=== PATIENT | male | born 1955 | race Caucasian/White ===

== ENCOUNTER → 2020-05-04 09:22 | Outpatient (CLI) | payer MEDICARE, OTHER, SELFPAY ==
[2020-05-04 09:47] LABS: Absolute Lymphocyte Count 2.02 X10^3/uL (0.83-4.51); Absolute Neutrophil Count 4.3 X10^3/uL (2.0-7.7); Basophil# 0.06 X10^3/uL; Basophil% 0.8 % (0-1); Eosinophils% 4.1 % (0-5); Hemoglobin 15.1 g/dL (13.0-16.5); Lymphocyte # 2.02 X10^3/ul (4.0); Lymphocyte % 27.7 % (19-41); Mean Corp Hgb Conc 33.6 g/dL (32-36); Mean Corpuscular Hgb 30.6 pg (27.0-32.0); Mean Corpuscular Volume 91.1 fL (80-94); Mean Platelet Vol. 10.1 fl (6.2-12.0); Monocyte# 0.58 X10^3/uL; NRBC Flagged by Analyzer 0 % (0-5); Neutrophil # 4.31 X10^3/uL (2.7-7.7); Neutrophil % 59.1 % (47-70); Platelet Count 245 K/mm3 (150-450); RBC Distribution Width CV 12.7 % (11.6-14.6); RBC Distribution Width SD 42.1 fl (35.1-43.9); Red Blood Count 4.94 M/mm3 (4.6-6.2); White Blood Count 7.3 K/mm3 (4.4-11.0)
[2020-05-04 10:02] LABS: ALB/GLOB Ratio 0.9 RATIO (0.9-2.4); AST(SGOT) 12 U/L (15-37); Alanine Aminotransfer ALT/SGPT 25 U/L (16-61); Albumin, Serum 3.7 g/dL (3.2-5.0); Alkaline Phosphatase 89 U/L (45-117); Anion Gap 2 (5-15); BUN 21 mg/dL (7-18); BUN/Creat Ratio 18.8 RATIO (10-20); Calcium,Total 9.3 mg/dL (8.5-10.1); Chloride 102 mmol/L (98-107); Cholesterol 196 mg/dL (200); Creatinine, Serum 1.12 mg/dL (0.70-1.30); EST Glomerular Filtration Rate 70 mL/min (>60); Est Glom Filt Rate - Afr Amer 84 mL/min (>60); Globulin 4.3 g/dL (2.2-4.2); Glucose 190 mg/dL (74-106); High Density Lipoprotein 44 mg/dL; Potassium 3.9 mmol/L (3.5-5.1); Sodium Level 136 mmol/L (136-145); Triglycerides 164 mg/dL; Very Low Density Lipoprotein 33 mg/dL (5-40)
[2020-05-04 10:04] LABS: Vitamin D,25 Hydroxy 23.4 ng/mL
[2020-05-04 10:05] LABS: Hemoglobin A1c 10.4 % (3.8-5.6)
== END ==
PROVIDERS: Referring Provider Nurse Practitioner Family; Visit Provider Nurse Practitioner Family
DX: E11.65 Type 2 diabetes mellitus with hyperglycemia (principal); I10 Essential (primary) hypertension; E55.9 Vitamin D deficiency, unspecified
CPT/HCPCS: 36415; 80053; 80061; 82306; 83036; 85025

== ENCOUNTER → 2020-07-04 09:04 | Outpatient (CLI) | payer MEDICARE, OTHER, SELFPAY ==
[2020-07-04 09:29] LABS: Absolute Lymphocyte Count 1.67 X10^3/uL (0.83-4.51); Absolute Neutrophil Count 4.5 X10^3/uL (2.0-7.7); Basophil# 0.06 X10^3/uL; Basophil% 0.8 % (0-1); Eosinophil# 0.32 X10^3/uL; Eosinophils% 4.5 % (0-5); Hematocrit 44.8 % (40-54); Lymphocyte # 1.67 X10^3/ul (4.0); Lymphocyte % 23.6 % (19-41); Mean Corp Hgb Conc 33.5 g/dL (32-36); Mean Corpuscular Hgb 30.7 pg (27.0-32.0); Mean Corpuscular Volume 91.8 fL (80-94); Mean Platelet Vol. 10.1 fl (6.2-12.0); Monocyte# 0.54 X10^3/uL; Monocyte% 7.6 % (0-10); NRBC Flagged by Analyzer 0 % (0-5); Neutrophil # 4.48 X10^3/uL (2.7-7.7); Neutrophil % 63.2 % (47-70); Platelet Count 245 K/mm3 (150-450); RBC Distribution Width CV 12.7 % (11.6-14.6); RBC Distribution Width SD 42.4 fl (35.1-43.9); Red Blood Count 4.88 M/mm3 (4.6-6.2); White Blood Count 7.1 K/mm3 (4.4-11.0)
[2020-07-04 09:45] LABS: Hemoglobin A1c 9.9 % (3.8-5.6)
[2020-07-04 09:51] LABS: ALB/GLOB Ratio 0.9 RATIO (0.9-2.4); AST(SGOT) 9 U/L (15-37); Alanine Aminotransfer ALT/SGPT 25 U/L (16-61); Albumin, Serum 3.9 g/dL (3.2-5.0); Alkaline Phosphatase 93 U/L (45-117); Anion Gap 4 (5-15); BUN 20 mg/dL (7-18); BUN/Creat Ratio 16.8 RATIO (10-20); Calcium,Total 9.4 mg/dL (8.5-10.1); Chloride 101 mmol/L (98-107); Cholesterol 221 mg/dL (200); Creatinine, Serum 1.19 mg/dL (0.70-1.30); EST Glomerular Filtration Rate 65 mL/min (>60); Est Glom Filt Rate - Afr Amer 78 mL/min (>60); Globulin 4.3 g/dL (2.2-4.2); Glucose 231 mg/dL (74-106); High Density Lipoprotein 45 mg/dL; Potassium 3.7 mmol/L (3.5-5.1); Protein, Total 8.2 g/dL (6.4-8.2); Sodium Level 137 mmol/L (136-145); Triglycerides 162 mg/dL; Very Low Density Lipoprotein 32 mg/dL (5-40)
[2020-07-06 14:42] LABS: Vitamin D,25 Hydroxy 58.4 ng/mL
== END ==
PROVIDERS: Referring Provider Family Medicine; Visit Provider Family Medicine
DX: E11.65 Type 2 diabetes mellitus with hyperglycemia (principal); E78.5 Hyperlipidemia, unspecified; I10 Essential (primary) hypertension; E55.9 Vitamin D deficiency, unspecified
CPT/HCPCS: 36415; 80053; 80061; 82306; 83036; 85025

== ENCOUNTER → 2021-02-15 07:36 | Outpatient (CLI) | payer MEDICARE, OTHER, SELFPAY ==
[2021-02-15 08:11] LABS: Absolute Neutrophil Count 5.9 X10^3/uL (2.0-7.7); Basophil# 0.04 X10^3/uL; Basophil% 0.5 % (0-1); Eosinophil# 0.11 X10^3/uL; Eosinophils% 1.3 % (0-5); Hematocrit 42.6 % (40-54); Hemoglobin 14.2 g/dL (13.0-16.5); Lymphocyte % 19.2 % (19-41); Mean Corp Hgb Conc 33.3 g/dL (32-36); Mean Corpuscular Hgb 30.5 pg (27.0-32.0); Mean Corpuscular Volume 91.6 fL (80-94); Mean Platelet Vol. 10.1 fl (6.2-12.0); Monocyte# 0.62 X10^3/uL; Monocyte% 7.4 % (0-10); NRBC Flagged by Analyzer 0 % (0-5); Neutrophil # 5.94 X10^3/uL (2.7-7.7); Neutrophil % 71.4 % (47-70); Platelet Count 246 K/mm3 (150-450); RBC Distribution Width CV 12.9 % (11.6-14.6); RBC Distribution Width SD 42.9 fl (35.1-43.9); Red Blood Count 4.65 M/mm3 (4.6-6.2); White Blood Count 8.3 K/mm3 (4.4-11.0)
[2021-02-15 08:30] LABS: ALB/GLOB Ratio 0.9 RATIO (0.9-2.4); AST(SGOT) 16 U/L (15-37); Alanine Aminotransfer ALT/SGPT 25 U/L (16-61); Albumin, Serum 3.6 g/dL (3.2-5.0); Alkaline Phosphatase 78 U/L (45-117); Anion Gap 5 (5-15); BUN 21 mg/dL (7-18); BUN/Creat Ratio 19.4 RATIO (10-20); Calcium,Total 9.1 mg/dL (8.5-10.1); Chloride 102 mmol/L (98-107); Cholesterol 180 mg/dL (200); Creatinine, Serum 1.08 mg/dL (0.70-1.30); EST Glomerular Filtration Rate 72 mL/min (>60); Est Glom Filt Rate - Afr Amer 88 mL/min (>60); Glucose 123 mg/dL (74-106); High Density Lipoprotein 44 mg/dL; PSA,Total - Annual Screen 4.44 ng/mL (0.00-4.00); Potassium 3.6 mmol/L (3.5-5.1); Protein, Total 7.6 g/dL (6.4-8.2); Sodium Level 136 mmol/L (136-145); Triglycerides 139 mg/dL; Very Low Density Lipoprotein 28 mg/dL (5-40)
[2021-02-15 11:33] LABS: Hemoglobin A1c 10.4 % (3.8-5.6)
[2021-02-18 18:17] LABS: Vitamin D 1,25-Dihydroxy 52.8 pg/mL (19.9-79.3)
== END ==
PROVIDERS: Referring Provider Nurse Practitioner Adult Health; Visit Provider Nurse Practitioner Adult Health
DX: E11.65 Type 2 diabetes mellitus with hyperglycemia (principal); E55.9 Vitamin D deficiency, unspecified; Z12.5 Encounter for screening for malignant neoplasm of prostate
CPT/HCPCS: 36415; 80053; 80061; 82652; 83036; 84153; 85025; G0103

== ENCOUNTER → 2021-06-04 09:18 | Outpatient (CLI) | payer MEDICARE, OTHER, SELFPAY ==
[2021-06-04 09:56] LABS: Glucose 119 mg/dL (74-106); PSA,Total- Diagnostic 3.21 ng/mL (0.0-4.0)
== END ==
PROVIDERS: Referring Provider Family Medicine; Visit Provider Family Medicine
DX: E11.42 Type 2 diabetes mellitus with diabetic polyneuropathy (principal); N40.0 Benign prostatic hyperplasia without lower urinary tract symptoms
CPT/HCPCS: 36415; 82947; 84153

== ENCOUNTER → 2021-12-30 | Outpatient (CLI) | payer MEDICARE, OTHER, SELFPAY ==
[2021-12-30 09:09] LABS: Absolute Lymphocyte Count 1.32 X10^3/uL (0.83-4.51); Absolute Neutrophil Count 4.3 X10^3/uL (2.0-7.7); Basophil# 0.03 X10^3/uL; Basophil% 0.5 % (0-1); Eosinophil# 0.26 X10^3/uL; Hematocrit 41.6 % (40-54); Hemoglobin 14.1 g/dL (13.0-16.5); Lymphocyte # 1.32 X10^3/ul (0.83-4.51); Lymphocyte % 20.5 % (19-41); Mean Corp Hgb Conc 33.9 g/dL (32-36); Mean Corpuscular Hgb 31.6 pg (27.0-32.0); Mean Corpuscular Volume 93.3 fL (80-94); Mean Platelet Vol. 10.2 fl (6.2-12.0); Monocyte# 0.54 X10^3/uL; Monocyte% 8.4 % (0-10); NRBC Flagged by Analyzer 0 % (0-5); Neutrophil # 4.28 X10^3/uL (2.7-7.7); Neutrophil % 66.3 % (47-70); Platelet Count 223 K/mm3 (150-450); RBC Distribution Width CV 12.9 % (11.6-14.6); Red Blood Count 4.46 M/mm3 (4.6-6.2); White Blood Count 6.5 K/mm3 (4.4-11.0)
[2021-12-30 09:28] LABS: Hemoglobin A1c 7.3 % (3.8-5.6); Microalbumin,Random Urine 8.3 mg/L (NO RANGE EST.); Microalbumin:Creatinine Ratio 9.2 mg/g CRE (<30 mg/g CRE)
[2021-12-30 09:47] LABS: ALB/GLOB Ratio 0.9 RATIO (0.9-2.4); AST(SGOT) 14 U/L (15-37); Alanine Aminotransfer ALT/SGPT 27 U/L (16-61); Albumin, Serum 3.6 g/dL (3.2-5.0); Alkaline Phosphatase 68 U/L (45-117); Anion Gap 4 (5-15); BUN 25 mg/dL (7-18); BUN/Creat Ratio 26.4 RATIO (10-20); Chloride 103 mmol/L (98-107); Cholesterol 191 mg/dL (200); Creatinine, Serum 0.95 mg/dL (0.70-1.30); EST Glomerular Filtration Rate 84 mL/min (>60); Est Glom Filt Rate - Afr Amer 102 mL/min (>60); Globulin 3.8 g/dL (2.2-4.2); Glucose 97 mg/dL (74-106); High Density Lipoprotein 43 mg/dL; Potassium 3.8 mmol/L (3.5-5.1); Protein, Total 7.4 g/dL (6.4-8.2); Sodium Level 139 mmol/L (136-145); Triglycerides 102 mg/dL; Very Low Density Lipoprotein 20 mg/dL (5-40); Vitamin D,25 Hydroxy 35.6 ng/mL
== END | disposition home or self-care (01) ==
LOC: PAVLAB 08:37
PROVIDERS: Referring Provider Nurse Practitioner Adult Health; Visit Provider Nurse Practitioner Adult Health
DX: E11.65 Type 2 diabetes mellitus with hyperglycemia (principal); E55.9 Vitamin D deficiency, unspecified
CPT/HCPCS: 36415; 80053; 80061; 82043; 82306; 82570; 83036; 85025

== ENCOUNTER → 2022-04-16 | Outpatient (CLI) | payer MEDICARE, OTHER, SELFPAY ==
--- NOTE | 2022-04-16 13:11 | NEURO ---
NCS and/or EMG Patient Report Ordering Doctor: Eliu Vang DATE OF SERVICE: 04/16/22 Jonas presents for electrodiagnostic testing of the upper limbs. He reports numbness and tingling in both hands with weakness. Electrodiagnostic findings: Left median motor nerve demonstrates prolonged latency with reduced amplitude and normal conduction velocity. Right median motor nerve demonstrates prolonged latency with reduced amplitude and reduced conduction velocity. Normal left ulnar motor response noted bilaterally. Borderline prolonged median F wave bilaterally. Absent median sensory responses bilaterally. Normal ulnar and radial sensory responses. On needle EMG, all muscles tested in the upper limbs showed no evidence of denervation with normal motor unit action potentials. Electrodiagnostic impression: This is an abnormal study in the upper limbs 1. Electrodiagnostic findings consistent with bilateral median mononeuropathy. This consistent with a severe bilateral carpal tunnel syndrome.
== END | disposition home or self-care (01) ==
LOC: PSN 10:09
DX: G62.9 Polyneuropathy, unspecified (principal); R20.0 Anesthesia of skin
CPT/HCPCS: 95886; 95912

== ENCOUNTER → 2022-05-29 | Outpatient (CLI) | payer MEDICARE, OTHER, SELFPAY ==
[2022-05-29 09:16] LABS: AST(SGOT) 11 U/L (15-37); Alanine Aminotransfer ALT/SGPT 26 U/L (16-61); Albumin, Serum 3.8 g/dL (3.2-5.0); Alkaline Phosphatase 69 U/L (45-117); Anion Gap 8 (5-15); BUN 21 mg/dL (7-18); BUN/Creat Ratio 19.3 RATIO (10-20); Calcium,Total 9.2 mg/dL (8.5-10.1); Chloride 103 mmol/L (98-107); Cholesterol 185 mg/dL (200); Creatinine, Serum 1.09 mg/dL (0.70-1.30); EST Glomerular Filtration Rate 71 mL/min (>60); Est Glom Filt Rate - Afr Amer 86 mL/min (>60); Globulin 3.9 g/dL (2.2-4.2); Glucose 120 mg/dL (74-106); High Density Lipoprotein 47 mg/dL; Potassium 3.5 mmol/L (3.5-5.1); Protein, Total 7.7 g/dL (6.4-8.2); Sodium Level 139 mmol/L (136-145); Triglycerides 119 mg/dL; Very Low Density Lipoprotein 24 mg/dL (5-40)
[2022-05-29 09:23] LABS: Hemoglobin A1c 8.2 % (3.8-5.6)
== END | disposition home or self-care (01) ==
LOC: PAVLAB 08:48
PROVIDERS: Referring Provider Family Medicine; Visit Provider Family Medicine
DX: E11.9 Type 2 diabetes mellitus without complications (principal); I10 Essential (primary) hypertension
CPT/HCPCS: 36415; 80053; 80061; 83036

== ENCOUNTER → 2022-07-14 | Outpatient (CLI) | payer MEDICARE, OTHER, SELFPAY ==
[2022-07-07 11:52] LABS: Hematocrit 46.3 % (40-54); Hemoglobin 15.4 g/dL (13.0-16.5); Mean Corp Hgb Conc 33.3 g/dL (32-36); Mean Corpuscular Hgb 31.1 pg (27.0-32.0); Mean Corpuscular Volume 93.5 fL (80-94); Mean Platelet Vol. 10.1 fl (6.2-12.0); Platelet Count 273 K/mm3 (150-450); RBC Distribution Width SD 44.5 fl (35.1-43.9); Red Blood Count 4.95 M/mm3 (4.6-6.2); White Blood Count 8.6 K/mm3 (4.4-11.0)
[2022-07-07 12:13] LABS: Anion Gap 5 (5-15); BUN 18 mg/dL (7-18); BUN/Creat Ratio 16.4 RATIO (10-20); Calcium,Total 9.9 mg/dL (8.5-10.1); Chloride 103 mmol/L (98-107); EST Glomerular Filtration Rate 71 mL/min (>60); Est Glom Filt Rate - Afr Amer 85 mL/min (>60); Glucose 78 mg/dL (74-106); Potassium 3.4 mmol/L (3.5-5.1); Sodium Level 140 mmol/L (136-145)
[2022-07-07 13:45] LABS: Hemoglobin A1c 7.8 % (3.8-5.6)
--- NOTE | 2022-07-14 08:39 | EKG12_ITS ---
Test Reason : PREOP Blood Pressure : / mmHG Vent. Rate : 076 BPM Atrial Rate : 076 BPM P-R Int : 198 ms QRS Dur : 122 ms QT Int : 394 ms P-R-T Axes : 034 -45 000 degrees QTc Int : 443 ms Normal sinus rhythm Left axis deviation Left bundle branch block Abnormal ECG Confirmed by SHANDRA EGAN, CARLENE ([id number]), tape editor MAIKOL GREENE ([id number]) on 07/15/2022 12:38:54 PM Referred By: Jase Boo Confirmed By:CARLENE DEVI MD
--- NOTE | 2022-07-14 08:50 | RAD_ITS ---
HISTORY: PRE-OP. TECHNIQUE: XR Chest 2 Views. COMPARISON: None. FINDINGS: CARDIOMEDIASTINAL BORDERS: Cardiac silhouette within normal limits in size. Mediastinal contour unremarkable with calcification of the aortic knob. LUNGS: 10 mm nodular opacity in the left midlung. Minimal linear atelectasis or scarring in the left lung base. PLEURA: No pleural effusion or pneumothorax seen. OSSEOUS STRUCTURES: Spinal osteophytes present. RAD/Chest PA and Lateral IMPRESSION: 10 mm nodular opacity in the left midlung. Recommend correlation with prior imaging or follow-up CT to assess for pulmonary nodule. Electronically Signed: Nay Nath MD at 9:40 EST ,
== END | disposition home or self-care (01) ==
LOC: PSN 08:38
PROVIDERS: Referring Provider Student in an Organized Health Care Education/Training Program; Visit Provider Student in an Organized Health Care Education/Training Program
DX: Z01.818 Encounter for other preprocedural examination (principal); E11.9 Type 2 diabetes mellitus without complications
CPT/HCPCS: 36415; 71046; 80048; 83036; 85027; 93005

== ENCOUNTER 2023-03-02 18:18 | Observation (INO) | payer MEDICARE, OTHER, SELFPAY ==
[2023-03-02] VITALS (7 sets, daily range): BP systolic 130–168; BP diastolic 74–94; PULSE 72–115; RESP 14–18; TEMP 35.7–36.7; O2SAT 94–98; BMI 27.6; BMI 27.1
--- NOTE | 2023-03-02 18:37 | EKG12_ITS ---
Test Reason : DYSRHYTHMIA Blood Pressure : / mmHG Vent. Rate : 104 BPM Atrial Rate : 104 BPM P-R Int : 200 ms QRS Dur : 136 ms QT Int : 374 ms P-R-T Axes : 041 -42 043 degrees QTc Int : 491 ms Sinus tachycardia Left axis deviation Left ventricular hypertrophy with QRS widening Abnormal ECG Confirmed by SHANDRA EGAN, CARLENE ([id number]), online editor MAIKOL GREENE ([id number]) on 03/04/2023 9:27:00 AM Referred By: Confirmed By:CARLENE DEVI MD
--- NOTE | 2023-03-02 18:37 | CT_ITS ---
We are attempting to reach an attending provider to discuss findings. An addendum with communication details will be sent when the communication is complete. INDICATION: Neuro deficit, acute, stroke suspected EXAMINATION: CT BRAIN WITH CONTRAST TECHNIQUE: Noncontrast axial images were obtained of the brain. Subsequently, routine carotid CT angiogram protocol was performed without and with IV contrast. In addition, images were obtained of the [place] of [place]. NASCET criteria using the distal ICAs for comparison were used for evaluation of stenoses. 3D reconstructions were reviewed. A radiation dose optimization technique was used for this scan. IV Contrast dosage and agent: 100 mL [id number] COMPARISON: None FINDINGS: --CT BRAIN: BRAIN PARENCHYMA: No intra- or extra-axial hemorrhage. No evidence of acute infarct. No intracranial mass or mass effect. There is preservation of the fuchs/white matter interface. Posterior fossa structures are unremarkable. CSF SPACES: Appropriate for age. No hydrocephalus. Basal cisterns are patent. CALVARIUM, SKULL BASE, PARANASAL SINUSES AND MASTOID AIR CELLS: Clear. No discrete lytic or blastic abnormalities. ASPECTS Score for Acute Strokes: 10 --CTA NECK: AORTIC ARCH AND BRANCHES: Normal anatomy, patent. RIGHT CCA: No occlusion, significant stenosis or dissection. RIGHT ICA: No occlusion, significant stenosis or dissection. LEFT CCA: No occlusion, significant stenosis or dissection. LEFT ICA: No occlusion, significant stenosis or dissection. RIGHT VERTEBRAL ARTERY: No occlusion, significant stenosis or dissection. LEFT VERTEBRAL ARTERY: No occlusion, significant stenosis or dissection. NECK SOFT TISSUES: Unremarkable. --CTA HEAD: --Anterior circulation: ICAs: No significant stenosis at the intracranial/visualized segments. ACAs: No significant stenosis at the visualized segments. ACOM: Present. MCAs: No significant stenosis at the visualized segments. --Posterior circulation: PCOMs: Present. hand polisher: No significant stenosis at the visualized segments. BASILAR ARTERY: No significant stenosis. VERTEBRAL ARTERIES: No significant stenosis at the intradural/visualized segments. No evidence of intracranial aneurysm or vascular malformation. CT/STROKE CTA Head AND Neck W/Con IMPRESSION: Negative CT Brain, CTA Carotid, and CTA Brain. Electronically Signed: Mian Martinez MD at 20:07 EDT ,
--- NOTE | 2023-03-02 18:38 | EDS_ITS ---
HPI History of Present Illness Chief Complaint: Neuro S/Sx Detail of Chief Complaint: Left arm weakness Informant: patient Narrative Narrative: Patient presents to the emergency department with complaint of weakness in his left arm that he initially started to note 2 days ago. Patient states that he noticed that he could still 2 days ago reach up to a cupboard to get things. Now he is having a hard time moving his left arm. He complains of a odd sensation to his scalp and that is sensitive diffusely. Patient also complains of some spasm in the left side of his neck but not having severe neck pain. Has not had any trauma to his neck. He denies any falls or head injuries. Patient denies chest pain or shortness of breath. He denies weakness of the lower extremities. He denies difficulty with speech or vision. Patient does have history of diabetes and hypertension. Patient does not think he is on blood thinners. [facility] Medical History Diabetes Fracture of femur following insertion of orthopedic implant, joint prosthesis, or bone plate, left leg HTN (hypertension) Kidney stone Home Medications amlodipine 5 mg tablet 5 mg PO DAILY blood pressure 03/02/23 [History Last Taken 03/02/23 15:00] glipizide 10 mg tablet 10 mg PO BID diabetes 03/02/23 [History Last Taken 03/02/23] hydrochlorothiazide 25 mg tablet 25 mg PO DAILY blood pressure 03/02/23 [History Last Taken 03/02/23] lisinopril 40 mg tablet 40 mg PO DAILY blood pressure 03/02/23 [History Last Taken 03/02/23] dulaglutide 1.5 mg/0.5 mL subcutaneous pen injector (Trulicity) 3 mg subcut QWEEK diabetes #2 mL 03/03/23 [Rx Last Taken Unknown] metformin 500 mg tablet 500 mg PO BID diabetes 30 days #60 tabs 03/03/23 [Rx Last Taken Unknown] pioglitazone 15 mg tablet (Actos) 15 mg PO DAILY diabetes #30 tabs 03/03/23 [Rx Last Taken Unknown] aspirin 81 mg capsule 81 mg PO DAILY heart health 03/10/23 [History Last Taken Unknown] sitagliptin phosphate 50 mg-metformin 1,000 mg tablet (Janumet) 1 tab PO BID diabetes 03/10/23 [History Last Taken Unknown] Allergy/AdvReac Type Severity Reaction Status Date / Time Food Allergies: Uncoded Allergy Severe Anaphylaxis Verified 03/03/23 07:04 morphine AdvReac Other Verified 03/02/23 18:20 Family History Father Emphysema of lung Social History Smoking Status: Never smoker ROS ROS ED Review of Systems ROS Unobtainable: other Constitutional Constitutional ED: Reports lethargy; Denies chills, fever(s), sweats or weight loss Eyes Eyes: Denies blurry vision, change in vision or diplopia ENT ENT ED: Denies rhinorrhea or sore throat Cardiovascular Cardiovascular: Denies chest pain, orthopnea or racing heartbeat Respiratory/Chest Respiratory/Chest: Denies cough, dyspnea, dyspnea on exertion, orthopnea or sputum Gastrointestinal Gastrointestinal: Denies abdominal pain, diarrhea, nausea or vomiting Genitourinary Genitourinary ED: Denies dysuria, hematuria or urinary frequency Musculoskeletal Musculoskeletal: Denies arthralgias, back pain, myalgias or neck pain Integumentary Denies abscess, Abrasions or rash Neurologic Neurologic: Reports weakness and other Details: Left arm weakness ; Denies headache(s) Psychiatric Psychiatric: Denies anxiety, depression or suicidal thoughts Endocrine Endocrinology: Denies polydipsia, polyphagia or polyuria Hematologic/Lymphatic Hematologic/Lymphatic: Denies easy bleeding, easy bruising or lymphadenopathy Allergic/Immunologic Allergic/Immunologic ED: Denies mouth swelling, tongue swelling or urticaria EXAM Physical Exam Const Vital Signs: 03/02/23 18:21 03/02/23 18:29 03/02/23 18:44 Temperature 96.2 F L Temperature Source Temporal Pulse Rate 115 H 108 H Respiratory Rate 14 14 Blood Pressure 130/81 H 148/83 H Blood Pressure Mean 97 104 Pulse Ox 98 98 Oxygen Delivery Method Room Air Room Air Room Air 03/02/23 18:44 03/02/23 20:36 Temperature 97.6 F L Temperature Source Temporal Pulse Rate 72 97 Respiratory Rate 14 18 Blood Pressure 133/79 H 168/94 H Blood Pressure Mean 97 118 Pulse Ox 98 94 Oxygen Delivery Method Room Air Room Air Positive well nourished and well developed General Appearance ED: well developed and NAD HEENT Reports TM's clear and moist mucous membranes normocephalic and atraumatic; Negative for trauma or tenderness Tympanic Membrane ED: Yes TM's clear Eyes PERRL and EOMs intact bilaterally General Eye ED: Negative for pale conjunctiva or scleral icterus Neck no lymphadenopathy, supple and no JVD General: Negative for tenderness Chest Wall inspection of chest normal and palpation of chest normal Chest: Negative for tenderness Resp normal respiratory effort and clear to auscultation bilaterally Effort and Inspection: Negative for respiratory distress or pain with movement Auscultation: Negative for rhonchi, wheezes or diminished lung sounds Cardio regular rate, regular rhythm, S1 normal heart sound, S2 normal heart sound and no murmurs Peripheral Pulses: pulses 2+ throughout GI normal to inspection, nondistended, normoactive bowel sounds, soft to palpation, non-tender, non-distended and no masses Back/Spine no CVA tenderness and no thoracic nor lumbar tenderness Extremity normal to inspection Extremity Narrative: Patient able to move the left arm at the shoulder and does have some movement of his fingers. He is unable to lift the left arm against gravity. General Extremety ED: Negative for edema General Extremity: Negative for edema Neuro oriented x3, CN's II-XII intact bilaterally and gait normal Neuro Narrative: NIH stroke scale 4 for weakness in the left arm and sensory changes to the scalp however this is bilateral. Sensorium / Orientation: awake, alert, oriented to person, oriented to place and oriented to time Motor Exam: strength 5/5 throughout and strength abnormal Psych mental status grossly normal Skin no rashes or lesions noted and no wounds MDM MDM MDM Narrative Medical decision making narrative: Patient presents with left arm weakness. In the differential would be stroke versus cervical radiculopathy. Patient not a thrombolytic candidate given onset of symptoms proximately 2 days ago. IV line established on arrival. Patient placed on a media monitor. EKG obtained showed a sinus rhythm with a rate of 104 bpm with LVH and nonspecific ventricular conduction delay. Lab work-up unremarkable. Troponin was normal. Glucose is elevated 322. CTA of the head and neck were unremarkable. Case discussed with hospitalist who will evaluate patient for admission. In the differential would be stroke versus cervical radiculopathy. Patient will require further work-up including MRI of brain and possibly of cervical spine to evaluate further Lab Data Labs: Laboratory Results - last 24 hr 03/02/23 03/02/23 18:38 18:48 WBC 10.8 RBC 4.81 Hgb 14.7 Hct 43.2 MCV 89.8 MCH 30.6 MCHC 34.0 RDW Std Deviation 43.1 RDW Coeff of Krish 13.1 Plt Count 346 MPV 10.0 Immature Gran % (Auto) 0.300 Neut % (Auto) 85.0 H Lymph % (Auto) 8.6 L [place] % (Auto) 4.3 Eos % (Auto) 1.3 Baso % (Auto) 0.5 Absolute Neuts (auto) 9.2 H Absolute Lymphs (auto) 0.93 Nucleated RBC % 0 PT 13.6 INR 1.0 APTT 31.6 Sodium 132 L Potassium 3.0 L Chloride 97 L Carbon Dioxide 30.0 Anion Gap 5 BUN 19 H Creatinine 1.14 Estim Creat Clear Calc 61.16 Est GFR (MDRD) Af Amer 82 Est GFR (MDRD) Non-Af 68 BUN/Creatinine Ratio 16.7 Glucose 349 H Calcium 9.4 Troponin I High Sens 12 POC Glucose 322 H Radiography Diagnostic Testing: Clinical Impression(s) from Imaging Studies Head/Neck CTA 03/02/23 18:37 IMPRESSION: Negative CT Brain, CTA Carotid, and CTA Brain. Electronically Signed: Mian Martinez MD at 20:07 EDT , ADDENDUM: 03/02/23 2019 IMPRESSION: Negative CT Brain, CTA Carotid, and CTA Brain. N.B. : The above Results were Read Back by Mian Martinez MD to Sulma Reed DO, and understanding confirmed on 03/02/2023 20:12:55 (ET). Electronically Signed: Mian Martinez MD at 20:07 EDT , Chest X-Ray 03/02/23 19:21 IMPRESSION: No radiographic evidence of acute cardiopulmonary disease. Electronically Signed: Mian Martinez MD at 19:33 EDT , 1 view chest x-ray obtained interpreted by myself as no evidence of infiltrate or pneumothorax or acute disease process. Radiology in agreement. EKG Initial EKG: Attestation: I personally reviewed and interpreted this EKG as follows: Comments: Sinus rhythm with a rate of 104 bpm with LVH and nonspecific intraventricular conduction delay Discharge Plan Dx/Rx/DC Orders Clinical Impression: Hyperglycemia, History of hypertension, Left arm weakness Disposition Disposition: Acute Care [facility] [place] Discharge Date/Time: 03/02/23 21:36
[2023-03-02 18:50] LABS: Absolute Lymphocyte Count 0.93 X10^3/uL (0.83-4.51); Absolute Neutrophil Count 9.2 X10^3/uL (2.0-7.7); Basophil# 0.05 X10^3/uL; Basophil% 0.5 % (0-1); Eosinophil# 0.14 X10^3/uL; Eosinophils% 1.3 % (0-5); Hematocrit 43.2 % (40-54); Hemoglobin 14.7 g/dL (13.0-16.5); Lymphocyte # 0.93 X10^3/ul (0.83-4.51); Lymphocyte % 8.6 % (19-41); Mean Corpuscular Hgb 30.6 pg (27.0-32.0); Mean Corpuscular Volume 89.8 fL (80-94); Monocyte# 0.46 X10^3/uL; Monocyte% 4.3 % (0-10); NRBC Flagged by Analyzer 0 % (0-5); Neutrophil # 9.19 X10^3/uL (2.7-7.7); Platelet Count 346 K/mm3 (150-450); RBC Distribution Width CV 13.1 % (11.6-14.6); RBC Distribution Width SD 43.1 fl (35.1-43.9); Red Blood Count 4.81 M/mm3 (4.6-6.2); White Blood Count 10.8 K/mm3 (4.4-11.0)
[2023-03-02] MEDS: 0.9% Normal Saline 1,000 ML 100 ML IV (18:51)
[2023-03-02 18:57] LABS: Partial Thromboplast Time 31.6 Seconds (24.1-36.2); Prothrombin Time (Protime)PT. 13.6 SECONDS (11.7-14.9)
[2023-03-02 19:07] LABS: Anion Gap 5 (5-15); BUN 19 mg/dL (7-18); BUN/Creat Ratio 16.7 RATIO (10-20); Calcium,Total 9.4 mg/dL (8.5-10.1); Chloride 97 mmol/L (98-107); Creatinine, Serum 1.14 mg/dL (0.70-1.30); EST Glomerular Filtration Rate 68 mL/min (>60); Est Glom Filt Rate - Afr Amer 82 mL/min (>60); Estimated Creatinine Clearance 61.16 ml/min; Glucose 349 mg/dL (74-106); Sodium Level 132 mmol/L (136-145); Troponin-I HS 12 pg/mL (3.0-78.0)
[2023-03-02 19:09] LABS: Bedside Glucose 322 mg/dL (74-106)
--- NOTE | 2023-03-02 19:21 | RAD_ITS ---
INDICATION: Neuro deficit, acute, stroke suspected EXAMINATION/TECHNIQUE: X-RAY - XR Chest 1 View COMPARISON: 07/14/2022 FINDINGS: LUNGS: No consolidation, edema or effusion. No pneumothorax. MEDIASTINUM AND CARDIOVASCULAR STRUCTURES: Cardiac silhouette not enlarged. Central airways and mediastinal contour are unremarkable. RAD/Chest 1 View IMPRESSION: No radiographic evidence of acute cardiopulmonary disease. Electronically Signed: Mian Martinez MD at 19:33 EDT ,
[2023-03-02] MEDS: Potassium Chloride Oral Tablet 20 MEQ 40 MEQ PO (20:33)
--- NOTE | 2023-03-02 20:42 | HP.PCM_ITS ---
HPI - General General Date of Admission: 03/02/23 Date of Service: 03/02/23 Chief Complaint: Left arm weakness HPI Narrative ROSANNA DWYER, is a 67 M who presents to the emergency room with chief complaint of left arm weakness and neck soreness. Onset of symptoms began approximately 2 days ago and the patient has been unable to move his left arm. Patient has significant past medical history of diabetes that is not well controlled and hyperlipidemia. Patient denies any previous stroke or [place]. Patient denies any chest pain, shortness of breath, fevers or chills and/or nausea or vomiting. CTA of head and neck is negative for acute intracranial hemorrhage or other acute finding. Laboratory studies were remarkable for low potassium which was replaced in the emergency room as well as elevated blood sugar. Patient will be admitted for observation to the progressive care unit for neurologic checks and MRI in a.m. [facility] Medical History (Updated 03/02/23 @ 20:[address] Sulma Reed, DO) Diabetes HTN (hypertension) Kidney stone Allergy/AdvReac Type Severity Reaction Status Date / Time morphine AdvReac Other Verified 03/02/23 18:20 Social History Smoking Status: Never smoker ROS Constitutional Constitutional: Denies fatigue, fever(s), frequent falls, headache(s) or lethargy Eyes Eyes: Denies change in vision ENT HEENT: Denies dysphagia or ear pain Cardiovascular Cardiovascular: Denies chest pain or dyspnea on exertion Respiratory/Chest Respiratory/Chest: Denies difficulty clearing secretions Gastrointestinal Gastrointestinal: Reports systems reviewed and no addt'l complaints, except as documented Genitourinary Genitourinary: Reports none Musculoskeletal Musculoskeletal: Reports as per HPI Integumentary Integumentary: Denies none Neurologic Neurologic: Reports as per HPI Psychiatric Psychiatric: Denies depression Vital Signs Vital Signs Vital Signs: 03/02/23 18:21 03/02/23 18:29 03/02/23 18:44 Temperature 96.2 F L Temperature Source Temporal Pulse Rate 115 H 108 H Respiratory Rate 14 14 Blood Pressure 130/81 H 148/83 H Blood Pressure Mean 97 104 Pulse Ox 98 98 Oxygen Delivery Method Room Air Room Air Room Air 03/02/23 18:44 03/02/23 20:36 Temperature 97.6 F L Temperature Source Temporal Pulse Rate 72 97 Respiratory Rate 14 18 Blood Pressure 133/79 H 168/94 H Blood Pressure Mean 97 118 Pulse Ox 98 94 Oxygen Delivery Method Room Air Room Air Weight Weight: 186 lb 15.232 oz Body Mass Index (BMI) 27.6 Physical Exam Const alert, oriented x3 and no apparent distress General Appearance: cooperative, comfortable, well kempt and well developed Orientation / Consciousness: awake HEENT normocephalic, head/scalp atraumatic, hearing grossly normal bilaterally and external ears normal Head and Scalp: normal to inspection, normocephalic and atraumatic Face and Sinus: normal facial exam and face symmetric External Ear: external ears normal Mouth: oral and palatal mucosa normal and tongue normal Eyes PERRL, EOMs intact bilaterally, conjunctivae normal and no scleral icterus General Eye: normal appearance of both eyes Neck no lymphadenopathy General: tenderness Lymph Lymphatic: no lymphadenopathy noted Chest inspection of chest normal Resp normal respiratory effort, normal air movement and no retractions Effort and Inspection: able to speak in complete sentences Cardio regular rate, regular rhythm, S1 normal heart sound, S2 normal heart sound and no murmurs GI non-tender Extremity Peripheral Pulses: Yes pulses 2+ throughout and radial pulses present Skin no rashes or lesions noted Neuro CN's II-XII intact bilaterally Coordination / Balance: [id number] test normal and other left arm sig decrease of motor fcn for adduction and abduction unable to maintain left arm extended when passively moved into position Speech: speech normal Gait (Neuro): unable to assess gait Pupil Exam: Normal Pupillary Reactivity/Response: bilateral Psych mental status grossly normal, thought process normal, cooperative, affect normal and speech normal Appearance: grossly normal Attitude: calm and engaged Activity / Motor Behavior: appropriate eye contact Results Lab / Micro Data 03/02/23 18:38 03/02/23 18:38 Labs: Laboratory Results - last 24 hr 03/02/23 18:38: WBC 10.8, RBC 4.81, Hgb 14.7, Hct 43.2, MCV 89.8, MCH 30.6, MCHC 34.0, RDW Std Deviation 43.1, RDW Coeff of Krish 13.1, Plt Count 346, MPV 10.0, Immature Gran % (Auto) 0.300, Neut % (Auto) 85.0 H, Lymph % (Auto) 8.6 L, [place] % (Auto) 4.3, Eos % (Auto) 1.3, Baso % (Auto) 0.5, Absolute Neuts (auto) 9.2 H, Absolute Lymphs (auto) 0.93, Nucleated RBC % 0, PT 13.6, INR 1.0, APTT 31.6, Sodium 132 L, Potassium 3.0 L, Chloride 97 L, Carbon Dioxide 30.0, Anion Gap 5, BUN 19 H, Creatinine 1.14, Estim Creat Clear Calc 61.16, Est GFR (MDRD) Af Amer 82, Est GFR (MDRD) Non-Af 68, BUN/Creatinine Ratio 16.7, Glucose 349 H, Calcium 9.4, Troponin I High Sens 12 03/02/23 18:48: POC Glucose 322 H Radiology Impression Head/Neck CTA 03/02/23 18:37 IMPRESSION: Negative CT Brain, CTA Carotid, and CTA Brain. Electronically Signed: Mian Martinez MD at 20:07 EDT Reading Location ID and State: [address] [place] [address] Tel , Service support , ADDENDUM: 03/02/23 2019 IMPRESSION: Negative CT Brain, CTA Carotid, and CTA Brain. N.B. : The above Results were Read Back by Mian Martinez MD to Sulma Reed DO, and understanding confirmed on 03/02/2023 20:12:55 (ET). Electronically Signed: Mian Martinez MD at 20:07 EDT Reading Location ID and State: [facility] / [place] Tel , Service support , Chest X-Ray 03/02/23 19:21 IMPRESSION: No radiographic evidence of acute cardiopulmonary disease. Electronically Signed: Mian Martinez MD at 19:33 EDT Reading Location ID and State: [facility] / [place] Tel , Service support , Assessment & Plan Assessment/Plan (1) Left arm weakness: (2) History of hypertension: (3) Hyperglycemia: PLAN: Plan 1 left arm weakness?admit patient to progressive care unit for observation, initiate neurologic evaluations every 4 hours per routine protocol we will start patient on aspirin, order MRI MRA head and neck to be done in the morning, PT to evaluate and treat patient in a.m. as well. 2. Hypertension?continue home medications we will monitor and add as needed medications as needed 3. Hyperglycemia?diabetes/continue patient on home regimen and will allow regular diet when speech swallow test this past 4. DVT prophylaxis?low molecular weight heparin Charges/Coding Visit Charges OBSV E&M: 19008 Observ/hosp same date L2
[2023-03-02] MEDS: Insulin Lispro 100 UNIT/ML INSULN.PEN SC (22:53)
[2023-03-02] MEDS: Enoxaparin 40 MG/0.4 ML Syringe SC (22:54)
[2023-03-02 23:19] LABS: Bedside Glucose 287 mg/dL (74-106)
[2023-03-03 01:24] VITALS: BMI 27.1
[2023-03-03 01:40] VITALS: BP 141/107; PULSE 93; RESP 15; TEMP 36.4; O2SAT 94
[2023-03-03 05:40] VITALS: BP 151/95; PULSE 102; RESP 15; TEMP 36.9; O2SAT 100
[2023-03-03 06:07] LABS: Absolute Lymphocyte Count 0.94 X10^3/uL (0.83-4.51); Absolute Neutrophil Count 8.9 X10^3/uL (2.0-7.7); Basophil# 0.03 X10^3/uL; Basophil% 0.3 % (0-1); Eosinophil# 0.08 X10^3/uL; Eosinophils% 0.8 % (0-5); Hemoglobin 14.2 g/dL (13.0-16.5); Lymphocyte # 0.94 X10^3/ul (0.83-4.51); Lymphocyte % 9.1 % (19-41); Mean Corp Hgb Conc 33.8 g/dL (32-36); Mean Corpuscular Hgb 30.6 pg (27.0-32.0); Mean Corpuscular Volume 90.5 fL (80-94); Monocyte# 0.42 X10^3/uL; Monocyte% 4.1 % (0-10); NRBC Flagged by Analyzer 0 % (0-5); Neutrophil # 8.86 X10^3/uL (2.7-7.7); Neutrophil % 85.3 % (47-70); Platelet Count 337 K/mm3 (150-450); RBC Distribution Width CV 12.9 % (11.6-14.6); Red Blood Count 4.64 M/mm3 (4.6-6.2); White Blood Count 10.4 K/mm3 (4.4-11.0)
[2023-03-03] MEDS: Insulin Lispro 100 UNIT/ML INSULN.PEN SC ×2 (06:10→11:28)
[2023-03-03 06:15] LABS: Prothrombin Time (Protime)PT. 13.3 SECONDS (11.7-14.9)
[2023-03-03 06:30] LABS: Bedside Glucose 277 mg/dL (74-106)
[2023-03-03 06:35] LABS: Anion Gap 6 (5-15); BUN 14 mg/dL (7-18); BUN/Creat Ratio 15.9 RATIO (10-20); Calcium,Total 8.9 mg/dL (8.5-10.1); Chloride 98 mmol/L (98-107); Cholesterol 147 mg/dL (200); Creatinine, Serum 0.88 mg/dL (0.70-1.30); EST Glomerular Filtration Rate 91 mL/min (>60); Est Glom Filt Rate - Afr Amer 110 mL/min (>60); Estimated Creatinine Clearance 79.23 ml/min; Glucose 252 mg/dL (74-106); High Density Lipoprotein 37 mg/dL; Potassium 3.1 mmol/L (3.5-5.1); Sodium Level 131 mmol/L (136-145); Triglycerides 134 mg/dL; Very Low Density Lipoprotein 27 mg/dL (5-40)
[2023-03-03 07:36] VITALS: O2SAT 94
[2023-03-03 07:49] LABS: Hemoglobin A1c 10.3 % (3.8-5.6)
[2023-03-03] MEDS: Potassium Chloride Oral Tablet 20 MEQ 40 MEQ PO (07:55)
[2023-03-03] MEDS: Aspirin 325 MG Tablet PO (07:55)
[2023-03-03 09:40] VITALS: BP 160/85; PULSE 95; RESP 16; TEMP 36.6; O2SAT 94
[2023-03-03] MEDS: LORazepam 0.5 MG Tablet PO (09:55)
[2023-03-03] MEDS: Enoxaparin 40 MG/0.4 ML Syringe SC (09:56)
--- NOTE | 2023-03-03 10:00 | MRI_ITS ---
EXAM: MR HEAD WITHOUT INTRAVENOUS CONTRAST CLINICAL INDICATION: Left arm weakness TECHNIQUE: Multiplanar and multisequence MR images of the brain were obtained without intravenous contrast. COMPARISON: CTA head and neck with contrast 03/02/2023. FINDINGS: BRAIN AND EXTRA-AXIAL SPACES: Unremarkable. No intra- or extra-axial hemorrhage. No evidence of acute infarct. No intracranial mass or mass effect. There is preservation of the fuchs/white matter interface. Posterior fossa structures are unremarkable. Ventricles are appropriate for age. No hydrocephalus. Basal cisterns are patent. SELLA: Unremarkable. Normal sella turcica, pituitary gland, infundibular stalk, optic chiasm and hypothalamus. AUDITORY SYSTEM: Unremarkable. The internal auditory canals are patent. BONES/JOINTS: Unremarkable. No discrete lytic or blastic abnormalities. SINUSES: Unremarkable as visualized. Clear. MASTOID AIR CELLS: Unremarkable as visualized. Clear. ORBITS: Unremarkable as visualized. Both globes, extraocular muscles, optic nerves and retrobulbar fat appear unremarkable. VASCULATURE: Unremarkable as visualized. Normal flow voids in the major intracranial circulation. MRI/Brain without Contrast IMPRESSION: Negative MRI brain without intravenous contrast. Electronically Signed: Kodak Arredondo MD at 11:16 EDT ,
--- NOTE | 2023-03-03 10:30 | PCM.DC ---
Discharge Instructions Diet Discharge Diet: No restrictions Activity Discharge Activity: Return to Normal Activity Weight Bearing Status: Weight bearing as tolerated Dressing / Incision Call your doctor if you observe: Fever of 101 or Higher, Coldness, Increased Pain, Numbness or Tingling, Change in Color, Inability to urinate, Inability to have a bowel movement, Shortness of breath, Dizziness, Fainting spells, Swelling in the ankles, Chest pain, Prolonged hiccupping, Increased palpitations (irregular heartbeat) and Calf discomfort Follow Up Care When: IN 2 WEEKS Test Results: Test results from this visit will be discussed in further detail at your follow-up appointment, if applicable. Discharge Plan Admission Admit Date/Time: 03/02/23 20:53 Primary Reason for Your Visit: Left shoulder weakness. Local pathology. Stroke ruled out Attending Provider: Jeet Robles Primary Care Provider: [facility] Milagro Capps Consulting Providers: Mian Lyman Instructions Additional Instructions / Restrictions: A1c 10.3%. Therefore, Trulicity dose increased to 3 mg subcu weekly. Prescribed metformin 500 mg daily and pioglitazone 15 mg daily. Follow with PCP in 1 week. Outpatient PT and OT. Discharge Orders/Prescriptions Prescriptions: New pioglitazone [Actos] 15 mg tablet 15 mg PO DAILY Qty: 30 0RF metformin 500 mg tablet 500 mg PO BID 30 Days Qty: 60 0RF Continued amlodipine 5 mg tablet 5 mg PO DAILY Patient Comments: TAKE 1 TABLET BY MOUTH ONCE DAILY glipizide 10 mg tablet 10 mg PO BID Patient Comments: TAKE 1 TABLET BY MOUTH TWICE DAILY hydrochlorothiazide 25 mg tablet 25 mg PO DAILY Patient Comments: TAKE 1 TABLET BY MOUTH ONCE DAILY lisinopril 40 mg tablet 40 mg PO DAILY Patient Comments: TAKE 1 TABLET BY MOUTH ONCE DAILY Changed Trulicity 1.5 mg/0.5 mL pen injector 3 mg SUBCUT QWEEK Qty: 2 2RF Patient Comments: INJECT 1 SYRINGE SUBCUTANEOUSLY ONCE A WEEK Referrals / Follow Up: [facility] Milagro Capps [Primary Care Provider] - Within 1 Week Blake Riddle MD [Non-Staff -Ordering Privileges] - Within 1 Week (Left shoulder weakness, NCV/EMG study) Disposition Disposition (needs filled in before D/C Order can be placed): Home Health Service
[2023-03-03 11:59] LABS: Bedside Glucose 274 mg/dL (74-106)
--- NOTE | 2023-03-03 13:30 | CASEMGMT ---
LUCRETIA NORTNO: This RN CM met with pt at chair side to discuss discharge needs. Pt states he plans to return home at discharge and states he is independent at baseline and has support in the home from his , children and grandkids. Pt is open to outpatient therapy if recommended. Will continue to monitor for determination of therapy needs. Pt aware of the need to follow-up with neurologist after discharge for further evaluation of this left arm weakness. Plan: Return home with support of family. Anna Egan RN CM
--- NOTE | 2023-03-03 14:45 | PHA.DC_ITS ---
Pharmacy [facility] has performed discharge medication reconciliation and counseling for this patient. Patient requested meds to beds, this [facility] called retail and requested delivery. 1. METFORMIN 500MG PO BID 2. PIOGLITAZONE 15MG PO DAILY The patient's discharge medication list was reviewed for discrepancies and discrepancies were resolved. The patient was counseled on the following discharge medications and changes in medications for homegoing were reviewed. The Reason for Use, instructions for use, and potential side effects were reviewed for all new medications. The patient's questions regarding all of their medications were answered. The patient was able to verbally demonstrate an understanding of their discharge medications. Patient counseled by clinical pharmacy technician, Kush. Medications at Discharge Home Medications amlodipine 5 mg tablet 5 mg PO DAILY blood pressure 03/02/23 glipizide 10 mg tablet 10 mg PO BID diabetes 03/02/23 hydrochlorothiazide 25 mg tablet 25 mg PO DAILY blood pressure 03/02/23 lisinopril 40 mg tablet 40 mg PO DAILY blood pressure 03/02/23 dulaglutide 1.5 mg/0.5 mL subcutaneous pen injector (Trulicity) 3 mg subcut QWEEK diabetes #2 mL 03/03/23 metformin 500 mg tablet 500 mg PO BID 30 days #60 tabs 03/03/23 pioglitazone 15 mg tablet (Actos) 15 mg PO DAILY #30 tabs 03/03/23
--- NOTE | 2023-03-03 15:33 | PN.HOSP_ITS ---
Reason for Visit Reason for Visit: Diagnoses Other symptoms and signs involving the musculoskeletal system (03/02/23) Hyperglycemia, unspecified (03/02/23) Personal history of other diseases of the circulatory system (03/02/23) Subjective Subjective Follow-up for left upper extremity weakness. Objective Data Objective Data Vital Signs: Vital Signs Temp Pulse Resp BP Pulse Ox O2 Del Method 97.8 F 95 16 160/85 H 94 Room Air 03/03/23 09:40 03/03/23 09:40 03/03/23 09:40 03/03/23 09:40 03/03/23 09:40 03/03/23 10:00 Oxygen Delivery Method Room Air Weight: 183 lb 10.321 oz Body Mass Index (BMI) 27.1 Intake & Output: Intake and Output for Last 24 Hours 03/01/23 03/02/23 03/03/23 23:59 23:59 23:59 Intake Total 1300 / 1300 Balance 1300 / 1300 Lab / Micro Data 03/03/23 05:24 03/03/23 05:24 Labs: Laboratory Results - last 24 hr 03/02/23 18:38: WBC 10.8, RBC 4.81, Hgb 14.7, Hct 43.2, MCV 89.8, MCH 30.6, MCHC 34.0, RDW Std Deviation 43.1, RDW Coeff of Krish 13.1, Plt Count 346, MPV 10.0, Immature Gran % (Auto) 0.300, Neut % (Auto) 85.0 H, Lymph % (Auto) 8.6 L, [place] % (Auto) 4.3, Eos % (Auto) 1.3, Baso % (Auto) 0.5, Absolute Neuts (auto) 9.2 H, Absolute Lymphs (auto) 0.93, Nucleated RBC % 0, PT 13.6, INR 1.0, APTT 31.6, Sodium 132 L, Potassium 3.0 L, Chloride 97 L, Carbon Dioxide 30.0, Anion Gap 5, BUN 19 H, Creatinine 1.14, Estim Creat Clear Calc 61.16, Est GFR (MDRD) Af Amer 82, Est GFR (MDRD) Non-Af 68, BUN/Creatinine Ratio 16.7, Glucose 349 H, Calcium 9.4, Troponin I High Sens 12 03/02/23 18:48: POC Glucose 322 H 03/02/23 22:51: POC Glucose 287 H 03/03/23 05:24: WBC 10.4, RBC 4.64, Hgb 14.2, Hct 42.0, MCV 90.5, MCH 30.6, MCHC 33.8, RDW Std Deviation 43.0, RDW Coeff of Krish 12.9, Plt Count 337, MPV 11.0, Immature Gran % (Auto) 0.400, Neut % (Auto) 85.3 H, Lymph % (Auto) 9.1 L, [place] % (Auto) 4.1, Eos % (Auto) 0.8, Baso % (Auto) 0.3, Absolute Neuts (auto) 8.9 H, Absolute Lymphs (auto) 0.94, Nucleated RBC % 0, PT 13.3, INR 1.0, Sodium 131 L, Potassium 3.1 L, Chloride 98, Carbon Dioxide 27.0, Anion Gap 6, BUN 14, Creatinine 0.88, Estim Creat Clear Calc 79.23, Est GFR (MDRD) Af Amer 110, Est GFR (MDRD) Non-Af 91, BUN/Creatinine Ratio 15.9, Glucose 252 H, Hemoglobin A1c 10.3 H, Calcium 8.9, Triglycerides 134, Cholesterol 147, LDL Cholesterol 83, VLDL Cholesterol 27, HDL Cholesterol 37 L 03/03/23 06:08: POC Glucose 277 H 03/03/23 11:27: POC Glucose 274 H Radiography Diagnostic Testing: Radiology Impression Head/Neck CTA 03/02/23 18:37 IMPRESSION: Negative CT Brain, CTA Carotid, and CTA Brain. Electronically Signed: Mian Martinez MD at 20:07 EDT , ADDENDUM: 03/02/23 2019 IMPRESSION: Negative CT Brain, CTA Carotid, and CTA Brain. N.B. : The above Results were Read Back by Mian Martinez MD to Sulma Reed DO, and understanding confirmed on 03/02/2023 20:12:55 (ET). Electronically Signed: Mian Martinez MD at 20:07 EDT , Chest X-Ray 03/02/23 19:21 IMPRESSION: No radiographic evidence of acute cardiopulmonary disease. Electronically Signed: Mian Martinez MD at 19:33 EDT , Brain MRI 03/03/23 10:00 IMPRESSION: Negative MRI brain without intravenous contrast. Electronically Signed: Kodak Arredondo MD at 11:16 EDT , Physical Exam Narrative Seen and examined. Left shoulder numbness tingling and mild weakness started about 1 week ago and progressed more, left upper extremity monoplegia for last 2 days. Physical exam General: Alert, Oriented x3, Cooperative HEENT: Atraumatic, PERRLA, EOMI, Normocephalic Oral: No Gingival or Mucosal Lesions/ Ulcerations Neck: Supple, No JVD, Negative Carotid Bruits Lungs: Air entry diminished in bilateral lung bases. No crepitation/rhonchi Cardiovascular: Regular rate, Regular Rhythm, Normal S1, Normal S2, No murmurs Abdomen: Bowel Sounds Present, Soft, Non Tender, Non-Distended : No renal angle tenderness. No suprapubic tenderness. Extremities: No edema, Capillary Refill Less than 3 Seconds Skin: No rashes, No breakdown Musculoskeletal: Left shoulder cannot lift 2/5. Left elbow flexion, biceps 2/5. Cannot make fist or move left 3 and half fingers, chronic median nerve palsy, carpal tunnel syndrome. No Tenderness to Palpation of Joints or Extremities Neurological: Cranial nerves II-XII grossly intact, DTR 2+/4, gross sensation to touch intact left upper extremity . Psych/Mental Status: Normal Affect, Appropriate. Assessment & Plan Assessment/Plan (1) Left arm weakness: PLAN: Plan This is a 67-year-old gentleman who is being admitted for left arm weakness that is started about 1 week ago. Patient felt mild numbness over left arm and tingling in the first 3 fingers of left hand. For last 2 days he could not lift left arm and shoulder. He feels like pinching of muscle. No other acute central or systemic neurological problem. Patient admitted in PCU to rule out a stroke. 1. Left shoulder weakness probably anterior compartment and shoulder muscle lesion, axillary nerve on exam, peripheral neuropathy: Patient admitted in PCU. CT head does not show acute intracranial abnormality. Patient also had CTA head and neck which was reported normal. Patient had MRI brain which reported no acute abnormality. Patient had nerve conduction studies and April 2022 reported as bilateral median neuropathy. Patient also had consultation surgery in left hand. Left shoulder exam shows weakness of shoulder abductor, and biceps/brachialis muscle probably C5-C6 nerve root. MRI C-spine and thoracic spine ordered. I talked to spine surgeon Dr. Clifford Granados and he advised to let him know after MRI is done so that he can review the images. He agreed for the consult. 2. Hypertension?continue home medications. BP is elevated 140/107-1 60/85. Continue lisinopril 40 mg daily. 3. Diabetes mellitus type 2: Glucose is uncontrolled. In BMP glucose is 252. A1c 10.3. Patient on 1.5 mg q. weekly increased to 3 mg q. weekly. The patient is started on metformin and Actos. Patient is on maximum dose of glipizide. 4. DVT prophylaxis?low molecular weight heparin Laboratory Results 03/02/23 18:38: WBC 10.8, RBC 4.81, Hgb 14.7, Hct 43.2, MCV 89.8, MCH 30.6, MCHC 34.0, RDW Std Deviation 43.1, RDW Coeff of Krish 13.1, Plt Count 346, MPV 10.0, Immature Gran % (Auto) 0.300, Neut % (Auto) 85.0 H, Lymph % (Auto) 8.6 L, [place] % (Auto) 4.3, Eos % (Auto) 1.3, Baso % (Auto) 0.5, Absolute Neuts (auto) 9.2 H, Absolute Lymphs (auto) 0.93, Nucleated RBC % 0, PT 13.6, INR 1.0, APTT 31.6, Sodium 132 L, Potassium 3.0 L, Chloride 97 L, Carbon Dioxide 30.0, Anion Gap 5, BUN 19 H, Creatinine 1.14, Estim Creat Clear Calc 61.16, Est GFR (MDRD) Af Amer 82, Est GFR (MDRD) Non-Af 68, BUN/Creatinine Ratio 16.7, Glucose 349 H, Calcium 9.4, Troponin I High Sens 12 03/02/23 18:48: POC Glucose 322 H 03/02/23 22:51: POC Glucose 287 H 03/03/23 05:24: WBC 10.4, RBC 4.64, Hgb 14.2, Hct 42.0, MCV 90.5, MCH 30.6, MCHC 33.8, RDW Std Deviation 43.0, RDW Coeff of Krish 12.9, Plt Count 337, MPV 11.0, Immature Gran % (Auto) 0.400, Neut % (Auto) 85.3 H, Lymph % (Auto) 9.1 L, [place] % (Auto) 4.1, Eos % (Auto) 0.8, Baso % (Auto) 0.3, Absolute Neuts (auto) 8.9 H, Absolute Lymphs (auto) 0.94, Nucleated RBC % 0, PT 13.3, INR 1.0, Sodium 131 L, Potassium 3.1 L, Chloride 98, Carbon Dioxide 27.0, Anion Gap 6, BUN 14, Creatinine 0.88, Estim Creat Clear Calc 79.23, Est GFR (MDRD) Af Amer 110, Est GFR (MDRD) Non-Af 91, BUN/Creatinine Ratio 15.9, Glucose 252 H, Hemoglobin A1c 10.3 H, Calcium 8.9, Triglycerides 134, Cholesterol 147, LDL Cholesterol 83, VLDL Cholesterol 27, HDL Cholesterol 37 L 03/03/23 06:08: POC Glucose 277 H 03/03/23 11:27: POC Glucose 274 H Charges/Coding Visit Charges Inpatient E&M: 51062 Subs Hosp L2
--- NOTE | 2023-03-03 16:05 | NURSING ---
Pt notified that his DC is cancelled. patient disagrees with this decision and wants to leave. This RN notified MD and asked if DC can be ordered if not patient will need to sign AMA papers. awaiting to hear back from .
--- NOTE | 2023-03-03 16:30 | DS.PCM_ITS ---
Providers Date of Admission: 03/02/23 Date of Discharge: 03/03/23 Primary Care Physician: [facility] Reason For Visit: LEFT ARM WEAKNESS Diagnosis Discharge Diagnosis (1) Left arm weakness: Status: Acute Code(s): R29.898 - Other symptoms and signs involving the musculoskeletal system (2) History of hypertension: Status: Acute Code(s): Z86.79 - Personal history of other diseases of the circulatory system (3) Hyperglycemia: Status: Acute Code(s): R73.9 - Hyperglycemia, unspecified Plan This is a 67-year-old gentleman who is being admitted for left arm weakness that is started about 1 week ago. Patient felt mild numbness over left arm and tingling in the first 3 fingers of left hand. For last 2 days he could not lift left arm and shoulder. He feels like pinching of muscle. No other acute central or systemic neurological problem. Patient admitted in PCU to rule out a stroke. 1. Left shoulder weakness probably anterior compartment and shoulder muscle lesion, axillary nerve on exam, peripheral neuropathy: Patient admitted in PCU. CT head does not show acute intracranial abnormality. Patient also had CTA head and neck which was reported normal. Patient had MRI brain which reported no acute abnormality. Patient had nerve conduction studies and April 2022 reported as bilateral median neuropathy. Patient also had consultation surgery in left hand. Left shoulder exam shows weakness of shoulder abductor, and biceps/brachialis muscle probably C5-C6 nerve root. I advised the patient to follow-up with the neurologist for EMG/nerve conduction study and might need further intervention. Outpatient physical therapy. 2. Hypertension?continue home medications. BP is elevated 140/10 7-1 60/85. Continue lisinopril 40 mg daily. Follow-up with PCP 3. Diabetes mellitus type 2: Glucose is uncontrolled. In BMP glucose is 252. A1c 10.3. Patient on 1.5 mg q. weekly increased to 3 mg q. weekly. Prescription also sent for metformin and Actos. Patient is on maximum dose of glipizide. Follow with PCP in 1 week to further glucose monitoring and titrate the dose. 4. DVT prophylaxis?low molecular weight heparin Laboratory Results 03/02/23 18:38: WBC 10.8, RBC 4.81, Hgb 14.7, Hct 43.2, MCV 89.8, MCH 30.6, MCHC 34.0, RDW Std Deviation 43.1, RDW Coeff of Krish 13.1, Plt Count 346, MPV 10.0, Immature Gran % (Auto) 0.300, Neut % (Auto) 85.0 H, Lymph % (Auto) 8.6 L, [place] % (Auto) 4.3, Eos % (Auto) 1.3, Baso % (Auto) 0.5, Absolute Neuts (auto) 9.2 H, Absolute Lymphs (auto) 0.93, Nucleated RBC % 0, PT 13.6, INR 1.0, APTT 31.6, Sodium 132 L, Potassium 3.0 L, Chloride 97 L, Carbon Dioxide 30.0, Anion Gap 5, BUN 19 H, Creatinine 1.14, Estim Creat Clear Calc 61.16, Est GFR (MDRD) Af Amer 82, Est GFR (MDRD) Non-Af 68, BUN/Creatinine Ratio 16.7, Glucose 349 H, Calcium 9.4, Troponin I High Sens 12 03/02/23 18:48: POC Glucose 322 H 03/02/23 22:51: POC Glucose 287 H 03/03/23 05:24: WBC 10.4, RBC 4.64, Hgb 14.2, Hct 42.0, MCV 90.5, MCH 30.6, MCHC 33.8, RDW Std Deviation 43.0, RDW Coeff of Krish 12.9, Plt Count 337, MPV 11.0, Immature Gran % (Auto) 0.400, Neut % (Auto) 85.3 H, Lymph % (Auto) 9.1 L, [place] % (Auto) 4.1, Eos % (Auto) 0.8, Baso % (Auto) 0.3, Absolute Neuts (auto) 8.9 H, Absolute Lymphs (auto) 0.94, Nucleated RBC % 0, PT 13.3, INR 1.0, Sodium 131 L, Potassium 3.1 L, Chloride 98, Carbon Dioxide 27.0, Anion Gap 6, BUN 14, Creatinine 0.88, Estim Creat Clear Calc 79.23, Est GFR (MDRD) Af Amer 110, Est GFR (MDRD) Non-Af 91, BUN/Creatinine Ratio 15.9, Glucose 252 H, Hemoglobin A1c 10.3 H, Calcium 8.9, Triglycerides 134, Cholesterol 147, LDL Cholesterol 83, VLDL Cholesterol 27, HDL Cholesterol 37 L 03/03/23 06:08: POC Glucose 277 H 03/03/23 11:27: POC Glucose 274 H Clinical Impression(s) from Imaging Studies Head/Neck CTA 03/02/23 18:37 IMPRESSION: Negative CT Brain, CTA Carotid, and CTA Brain. Chest X-Ray 03/02/23 19:21 IMPRESSION: No radiographic evidence of acute cardiopulmonary disease. Electronically Signed: Mian Martinez MD at 19:33 EDT , Brain MRI 03/03/23 10:00 IMPRESSION: Negative MRI brain without intravenous contrast. Electronically Signed: Kodak Arredondo MD at 11:16 EDT , Medications at Discharge Home Medications amlodipine 5 mg tablet 5 mg PO DAILY blood pressure 03/02/23 glipizide 10 mg tablet 10 mg PO BID diabetes 03/02/23 hydrochlorothiazide 25 mg tablet 25 mg PO DAILY blood pressure 03/02/23 lisinopril 40 mg tablet 40 mg PO DAILY blood pressure 03/02/23 dulaglutide 1.5 mg/0.5 mL subcutaneous pen injector (Trulicity) 3 mg subcut QWEEK diabetes #2 mL 03/03/23 metformin 500 mg tablet 500 mg PO BID 30 days #60 tabs 03/03/23 pioglitazone 15 mg tablet (Actos) 15 mg PO DAILY #30 tabs 03/03/23 Physical Exam Narrative Seen and examined. Left shoulder numbness tingling and mild weakness started about 1 week ago and progressed more, left upper extremity monoplegia for last 2 days. General: Alert, Oriented x3, Cooperative HEENT: Atraumatic, PERRLA, EOMI, Normocephalic Oral: No Gingival or Mucosal Lesions/ Ulcerations Neck: Supple, No JVD, Negative Carotid Bruits Lungs: Air entry diminished in bilateral lung bases. No crepitation/rhonchi Cardiovascular: Regular rate, Regular Rhythm, Normal S1, Normal S2, No murmurs Abdomen: Bowel Sounds Present, Soft, Non Tender, Non-Distended : No renal angle tenderness. No suprapubic tenderness. Extremities: No edema, Capillary Refill Less than 3 Seconds Skin: No rashes, No breakdown Musculoskeletal: Left shoulder cannot lift 2/5. Left elbow flexion, biceps 2/5. Cannot make fist or move left 3 and half fingers, chronic median nerve palsy, carpal tunnel syndrome. No Tenderness to Palpation of Joints or Extremities Neurological: Cranial nerves II-XII grossly intact, DTR 2+/4, gross sensation to touch intact left upper extremity . Psych/Mental Status: Normal Affect, Appropriate. Weight / BMI Weight Weight: 183 lb 10.321 oz Body Mass Index (BMI) 27.1 ABG / Lab / Microbiology Data 03/03/23 05:24 03/03/23 05:24 Laboratory: Laboratory Results - last 24 hr 03/02/23 18:38: WBC 10.8, RBC 4.81, Hgb 14.7, Hct 43.2, MCV 89.8, MCH 30.6, MCHC 34.0, RDW Std Deviation 43.1, RDW Coeff of Krish 13.1, Plt Count 346, MPV 10.0, Immature Gran % (Auto) 0.300, Neut % (Auto) 85.0 H, Lymph % (Auto) 8.6 L, [place] % (Auto) 4.3, Eos % (Auto) 1.3, Baso % (Auto) 0.5, Absolute Neuts (auto) 9.2 H, Absolute Lymphs (auto) 0.93, Nucleated RBC % 0, PT 13.6, INR 1.0, APTT 31.6, Sodium 132 L, Potassium 3.0 L, Chloride 97 L, Carbon Dioxide 30.0, Anion Gap 5, BUN 19 H, Creatinine 1.14, Estim Creat Clear Calc 61.16, Est GFR (MDRD) Af Amer 82, Est GFR (MDRD) Non-Af 68, BUN/Creatinine Ratio 16.7, Glucose 349 H, Calcium 9.4, Troponin I High Sens 12 03/02/23 18:48: POC Glucose 322 H 03/02/23 22:51: POC Glucose 287 H 03/03/23 05:24: WBC 10.4, RBC 4.64, Hgb 14.2, Hct 42.0, MCV 90.5, MCH 30.6, MCHC 33.8, RDW Std Deviation 43.0, RDW Coeff of Krish 12.9, Plt Count 337, MPV 11.0, Immature Gran % (Auto) 0.400, Neut % (Auto) 85.3 H, Lymph % (Auto) 9.1 L, [place] % (Auto) 4.1, Eos % (Auto) 0.8, Baso % (Auto) 0.3, Absolute Neuts (auto) 8.9 H, Absolute Lymphs (auto) 0.94, Nucleated RBC % 0, PT 13.3, INR 1.0, Sodium 131 L, Potassium 3.1 L, Chloride 98, Carbon Dioxide 27.0, Anion Gap 6, BUN 14, Creati nine 0.88, Estim Creat Clear Calc 79.23, Est GFR (MDRD) Af Amer 110, Est GFR (MDRD) Non-Af 91, BUN/Creatinine Ratio 15.9, Glucose 252 H, Hemoglobin A1c 10.3 H, Calcium 8.9, Triglycerides 134, Cholesterol 147, LDL Cholesterol 83, VLDL Cholesterol 27, HDL Cholesterol 37 L 03/03/23 06:08: POC Glucose 277 H 03/03/23 11:27: POC Glucose 274 H Radiography Diagnostic Testing: Radiology Impression Head/Neck CTA 03/02/23 18:37 IMPRESSION: Negative CT Brain, CTA Carotid, and CTA Brain. Electronically Signed: Mian Martinez MD at 20:07 EDT Reading Location ID and State: [address] [place] [address] Tel , Service support , ADDENDUM: 03/02/23 2019 IMPRESSION: Negative CT Brain, CTA Carotid, and CTA Brain. N.B. : The above Results were Read Back by Mian Martinez MD to Sulma Reed DO, and understanding confirmed on 03/02/2023 20:12:55 (ET). Electronically Signed: Mian Martinez MD at 20:07 EDT , Chest X-Ray 03/02/23 19:21 IMPRESSION: No radiographic evidence of acute cardiopulmonary disease. Electronically Signed: Mian Martinez MD at 19:33 EDT , Brain MRI 03/03/23 10:00 IMPRESSION: Negative MRI brain without intravenous contrast. Electronically Signed: Kodak Arredondo MD at 11:16 EDT , D/C Instructions Discharge Diet: No restrictions Weight Bearing Status: Weight bearing as tolerated Call your doctor if you observe: Fever of 101 or Higher, Coldness, Increased Pain, Numbness or Tingling, Change in Color, Inability to urinate, Inability to have a bowel movement, Shortness of breath, Dizziness, Fainting spells, Swelling in the ankles, Chest pain, Prolonged hiccupping, Increased palpitations (irregular heartbeat) and Calf discomfort When: IN 2 WEEKS Meaningful Use Info Meaningful Use Diagnoses (Choose all that apply): None applicable Discharge Plan Admission Admit Date/Time: 03/02/23 20:53 Primary Reason for Your Visit: Left shoulder weakness. Local pathology. Stroke ruled out Attending Provider: Jeet Robles [facility] Providers: Mian Lyman Instructions Additional Instructions / Restrictions: A1c 10.3%. Therefore, Trulicity dose increased to 3 mg subcu weekly. Prescr ibed metformin 500 mg daily and pioglitazone 15 mg daily. Follow with PCP in 1 week. Outpatient PT and OT. Discharge Orders/Prescriptions Prescriptions: New pioglitazone [Actos] 15 mg tablet 15 mg PO DAILY Qty: 30 0RF metformin 500 mg tablet 500 mg PO BID 30 Days Qty: 60 0RF Continued amlodipine 5 mg tablet 5 mg PO DAILY Patient Comments: TAKE 1 TABLET BY MOUTH ONCE DAILY glipizide 10 mg tablet 10 mg PO BID Patient Comments: TAKE 1 TABLET BY MOUTH TWICE DAILY hydrochlorothiazide 25 mg tablet 25 mg PO DAILY Patient Comments: TAKE 1 TABLET BY MOUTH ONCE DAILY lisinopril 40 mg tablet 40 mg PO DAILY Patient Comments: TAKE 1 TABLET BY MOUTH ONCE DAILY Changed Trulicity 1.5 mg/0.5 mL pen injector 3 mg SUBCUT QWEEK Qty: 2 2RF Patient Comments: INJECT 1 SYRINGE SUBCUTANEOUSLY ONCE A WEEK Referrals / Follow Up: Blake Riddle MD [Non-Staff -Ordering Privileges] - Within 1 Week (Left shoulder weakness, NCV/EMG study) [facility] Dalton [Primary Care Provider] - Within 1 Week Disposition Disposition (needs filled in before D/C Order can be placed): Home Health Service Charges/Coding Visit Charges Inpatient E&M: 02464 Disch Hosp >30min
== END 2023-03-03 16:52 | disposition left against medical advice (07) ==
LOC: ED 20:41 → PCU 21:00
PROVIDERS: Admitting Provider Family Medicine; Emergency Provider Emergency Medicine; Visit Provider Internal Medicine
DX: R29.898 Other symptoms and signs involving the musculoskeletal system (principal); E11.65 Type 2 diabetes mellitus with hyperglycemia; R53.1 Weakness; I10 Essential (primary) hypertension; R94.31 Abnormal electrocardiogram [ECG] [EKG]; R00.0 Tachycardia, unspecified; M54.2 Cervicalgia; E78.5 Hyperlipidemia, unspecified; E87.6 Hypokalemia; Z86.79 Personal history of other diseases of the circulatory system
CPT/HCPCS: 36415; 70496; 70498; 70551; 71045; 80048; 80061; 82962; 83036; 84484; 85025; 85610; 85730; 93005; 94762; 96360; 96361; 96372; 97162; 97166; 99221; 99285; Q9967; G0378

== ENCOUNTER 2023-03-10 10:08 | Inpatient (IN) | payer MEDICARE, OTHER, SELFPAY ==
[2023-03-10] VITALS (10 sets, daily range): BP systolic 145–165; BP diastolic 92–98; PULSE 88–105; RESP 12–21; TEMP 36–36.9; O2SAT 94–98; BMI 27.3; BMI 25.6
--- NOTE | 2023-03-10 10:14 | EKG12_ITS ---
Test Reason : Blood Pressure : / mmHG Vent. Rate : 100 BPM Atrial Rate : 100 BPM P-R Int : 178 ms QRS Dur : 136 ms QT Int : 378 ms P-R-T Axes : 057 -54 018 degrees QTc Int : 487 ms Normal sinus rhythm Left axis deviation Left ventricular hypertrophy with QRS widening ( R in aVL , Kojo product , Romhilt-Salazar ) Cannot rule out Septal infarct , age undetermined Abnormal ECG Confirmed by SERENA EGAN, ALEX ([id number]), film editor MAIKOL GREENE ([id number]) on 03/12/2023 8:53:04 AM Referred By: Confirmed By:WESLEY LYONS MD
--- NOTE | 2023-03-10 10:14 | CT_ITS ---
STUDY: CT BRAIN WITHOUT CONTRAST REASON FOR EXAM: Male, 67 years old. Arm weakness ,facial droop, HYPERTENSION RADIATION DOSAGE (If Supplied By Facility): CTDIvol = ( 44.99 ) mGy, DLP = ( 812.98 ) mGycm TECHNIQUE: Transaxial CT imaging of the brain was performed without administration of intravenous contrast material. Individualized dose optimization techniques were used for this CT. COMPARISON: Comparison is made with prior CT scan of the brain dated March 02, 2023 and prior MRI of the brain dated March 03, 2023. FINDINGS: Normal soft tissue structures. Normal calvarium. Normal size ventricles and extra-axial spaces for the patient''s age. Normal white matter tracts of the cerebral hemispheres. Normal basal ganglia and thalami. Normal brainstem. Normal cerebellum. There is no intracranial hemorrhage. There are no findings of an acute ischemic infarction. Atherosclerotic plaque formation of the cavernous portions of the internal carotid arteries bilaterally and vertebral arteries. Nodular mucosal thickening of the maxillary sinuses bilaterally. CT/Brain/Head without Contrast IMPRESSION: Normal unenhanced CT scan of the brain. Nodular mucosal thickening of the maxillary sinuses bilaterally. Electronically Signed: Luis Enrique Merchant MD at 10:40 EDT ,
--- NOTE | 2023-03-10 10:15 | ED.RN ---
stroke alert cancelled per dr gandara
--- NOTE | 2023-03-10 10:18 | NURSING ---
[id number] STROKE ALERT CALLED
--- NOTE | 2023-03-10 10:19 | ED.VIS.STROK ---
HPI History of Present Illness Chief Complaint: Stroke Alert Informant: patient and family Narrative Narrative: Patient is a 67-year-old male with history of hypertension and diabetes mellitus as well as recent development of left arm weakness (admitted with negative MRI 03/02 through 03/03) is presenting with continued arm weakness, slight stumbling gait and now some right-sided facial droop. Daughter states that she took him to an appointment yesterday and noticed that his blinking seemed unequal. She notes that he has been complaining of some balance issues as well. She states that he had a massage on Thursday and everything seemed pretty normal except for the left upper extremity weakness. Is not clear exactly when his last known well is but seems to be at least 2 days ago. The cause of this weakness of his left arm is unclear however patient does have a history of bilateral median nerve mononeuropathy consistent with severe bilateral carpal tunnel syndrome diagnosed a little under a year ago. Patient denies any other complaints at this time. Patient left the hospital without getting further testing done because he states I just need to go outside. He is amenable to coming back in today. [facility] Medical History Diabetes Fracture of femur following insertion of orthopedic implant, joint prosthesis, or bone plate, left leg HTN (hypertension) Kidney stone Home Medications amlodipine 5 mg tablet 5 mg PO DAILY blood pressure 03/02/23 [History Last Taken 03/02/23 15:00] glipizide 10 mg tablet 10 mg PO BID diabetes 03/02/23 [History Last Taken 03/02/23] hydrochlorothiazide 25 mg tablet 25 mg PO DAILY blood pressure 03/02/23 [History Last Taken 03/02/23] lisinopril 40 mg tablet 40 mg PO DAILY blood pressure 03/02/23 [History Last Taken 03/02/23] dulaglutide 1.5 mg/0.5 mL subcutaneous pen injector (Trulicity) 3 mg subcut QWEEK diabetes #2 mL 03/03/23 [Rx Last Taken Unknown] metformin 500 mg tablet 500 mg PO BID diabetes 30 days #60 tabs 03/03/23 [Rx Last Taken Unknown] pioglitazone 15 mg tablet (Actos) 15 mg PO DAILY diabetes #30 tabs 03/03/23 [Rx Last Taken Unknown] aspirin 81 mg capsule 81 mg PO DAILY [facility] 03/10/23 [History Last Taken Unknown] sitagliptin phosphate 50 mg-metformin 1,000 mg tablet (Janumet) 1 tab PO BID diabetes 03/10/23 [History Last Taken Unknown] Allergy/AdvReac Type Severity Reaction Status Date / Time Food Allergies: Uncoded Allergy Severe Anaphylaxis Verified 03/03/23 07:04 morphine AdvReac Other Verified 03/02/23 18:20 Family History Father Emphysema of lung Social History Smoking Status: Never smoker ROS ROS ED Constitutional Constitutional ED: Denies chills or fever(s) Eyes Eyes: Denies blurry vision or change in vision ENT ENT ED: Denies sore throat Cardiovascular Cardiovascular: Denies chest pain Respiratory/Chest Respiratory/Chest: Denies cough Gastrointestinal Gastrointestinal: Denies abdominal pain, nausea or vomiting Genitourinary Genitourinary ED: Denies dysuria Musculoskeletal Musculoskeletal: Reports neck pain and other Details: left arm weakness ; Denies back pain Integumentary Denies rash Neurologic Neurologic: Reports weakness and other Details: right facial droop ; Denies headache(s) or paresthesias Psychiatric Psychiatric: Denies anxiety or depression Hematologic/Lymphatic Hematologic/Lymphatic: Denies easy bleeding EXAM Physical Exam Const Vital Signs: 03/10/23 10:09 03/10/23 10:27 03/10/23 10:28 Temperature 96.8 F L Temperature Source Temporal Pulse Rate 104 H 105 H Respiratory Rate 12 20 H Blood Pressure 151/93 H 151/93 H Blood Pressure Mean 112 112 Pulse Ox 97 97 Oxygen Delivery Method Room Air Room Air 03/10/23 11:22 03/10/23 11:35 03/10/23 12:04 Temperature 98.3 F Temperature Source Oral Pulse Rate 102 H 100 100 Respiratory Rate 14 21 H 21 H Blood Pressure 148/92 H 148/92 H 145/94 H Blood Pressure Mean 110 110 111 Pulse Ox 94 96 96 Oxygen Delivery Method Room Air Room Air Room Air Positive well nourished and well developed General Appearance ED: well developed and NAD HEENT Reports moist mucous membranes atraumatic Eyes PERRL and EOMs intact bilaterally Eyes Narrative: Patient is unequal blinking, weak blinking on the right side Neck supple and no JVD General: Negative for tenderness Chest Wall inspection of chest normal and palpation of chest normal Resp normal respiratory effort and clear to auscultation bilaterally Cardio no murmurs Cardio Narrative: 2+ DP and radial pulses Rate: regular rate Rhythm: regular rhythm GI normal to inspection, nondistended, normoactive bowel sounds and soft to palpation Extremity Extremity Narrative: Intact strength of the hand, able to flex and extend the wrist, make a fist and move fingers appropriately, no pain or deformity of the extremities. General Extremety ED: Negative for deformity, edema or tenderness General Extremity: Negative for deformity or edema Neuro oriented x3 Neuro Narrative: Right facial droop with involvement of the forehead and unequal blinking?consistent with cranial nerve VII palsy Weakness with decreased tone of the shoulder and forearm. Patient is not able to move his shoulder, leave his arm up or in isolation Flex/extend/supinate/pronate his forearm. Left arm drops immediately to the bed. No other focal weakness appreciated. 5/5 strength with plantar and dorsiflexion of the feet. No loss of sensation/paresthesias. NIH equals 3 for left arm weakness and right facial droop Psych mental status grossly normal Skin no wounds Lesions: no lesions NIHSS NIHSS Initial: 1a Level of Consciousness: 0 1b LOC Questions (Score 2 if aphasic/stupor): 0 1c LOC Commands (Only score 1st attempt): 0 2 Best Gaze (If aphasic, use reflexive mvmts.): 0 3 Visual: 0 4 Facial Palsy: 1 5 Motor Arm Right (UN = amputation/fusion): 0 5 Motor Arm Left: 2 6 Motor Leg Right: 0 6 Motor Leg Left: 0 7 Limb ataxia (Only + if out of proportion): 0 8 Sensory (Aphasia/stupor=0 or 1, coma=2): 0 9 Best Language: 0 10 Dysarthria (mute, coma=2, intubated=UN): 0 11 Extinction and Inattention (only scored if +): 0 Total Score: 3 MDM MDM MDM Narrative Medical decision making narrative: Patient is evaluated for continued weakness of the left upper extremity as well as a new facial droop. The facial droop is highly consistent with a cranial nerve VII palsy however given this collection of neurologic symptoms I am concerned there could be either an acute peripheral neuropathy, dural venous thrombosis or other more sinister pathology. Presentation is not consistent with acute stroke and patient is not a tPA candidate. In addition he had a normal MRI last week in the setting of these upper extremity symptoms. Patient had a CTA 1 week ago and I do not think that needs to be repeated. Lab work stable and CT of the brain does not show any acute process. I discussed that I am concerned with the progression of his neurologic symptoms recommend admission back to the hospital to complete his work-up. Patient is agreeable. Case discussed with my physician, Dr. Nuno. History & Record Review Additional record(s) reviewed:: Prior inpatient record Lab Data Attestation: I reviewed the patient's lab results. Labs: Laboratory Results - last 24 hr 03/10/23 03/10/23 10:13 10:30 WBC 11.1 H RBC 5.06 Hgb 15.5 Hct 45.4 MCV 89.7 MCH 30.6 MCHC 34.1 RDW Std Deviation 43.4 RDW Coeff of Krish 13.1 Plt Count 362 MPV 9.9 Immature Gran % (Auto) 0.400 Neut % (Auto) 80.6 H Lymph % (Auto) 11.2 L [place] % (Auto) 6.2 Eos % (Auto) 1.2 Baso % (Auto) 0.4 Absolute Neuts (auto) 9.0 H Absolute Lymphs (auto) 1.25 Nucleated RBC % 0 ESR 58 H Sodium 132 L Potassium 3.2 L Chloride 97 L Carbon Dioxide 27.0 Anion Gap 8 BUN 15 Creatinine 0.89 Estim Creat Clear Calc 78.33 Est GFR (MDRD) Af Amer 109 Est GFR (MDRD) Non-Af 90 BUN/Creatinine Ratio 16.9 Glucose 235 H Calcium 9.0 Magnesium 2.0 Total Creatine Kinase 98 C-React Prot Ext Range 6.02 H Vitamin B12 402 Vitamin D 25-Hydroxy 27.6 Folate 12.60 Syphilis Total Ab Non-reactive HIV 1&2 Antibody Non-Reactive POC Glucose 238 H Radiography Chest X-Ray - ED: 1 View, Read by ED Physician, Read by Radiologist and No Acute Disease Diagnostic Testing: Clinical Impression(s) from Imaging Studies Brain CT 03/10/23 10:14 IMPRESSION: Normal unenhanced CT scan of the brain. Nodular mucosal thickening of the maxillary sinuses bilaterally. Electronically Signed: Luis Enrique Merchant MD at 10:40 EDT , Chest X-Ray 03/10/23 10:38 IMPRESSION: Mild residual increased linear markings at the left lung base. There has been improved aeration as compared to prior study. Electronically Signed: Luis Enrique Merchant MD at 11:07 EDT , Rhythm Strip Rhythm Strip: Sinus Rhythm Rate: 100 Ectopy: None EKG Initial EKG: Attestation: I personally reviewed and interpreted this EKG as follows: Interpretation: Sinus Rhythm Comments: Normal sinus rhythm rate of 100 bpm Left axis deviation LVH with QRS widening QRS duration 138 QTc 487 No change compared to prior EKG Discharge Plan Dx/Rx/DC Orders Clinical Impression: Multiple neurological symptoms, Cranial nerve VII palsy, Left arm weakness Disposition Disposition: Acute Care Hospital [facility] Discharge Date/Time: 03/10/23 12:05
--- NOTE | 2023-03-10 10:23 | NURSING ---
FAXED FACESHEET TO [facility]
[2023-03-10 10:37] LABS: Bedside Glucose 238 mg/dL (74-106)
[2023-03-10 10:38] LABS: Absolute Lymphocyte Count 1.25 X10^3/uL (0.83-4.51); Basophil# 0.05 X10^3/uL; Basophil% 0.4 % (0-1); Eosinophil# 0.13 X10^3/uL; Eosinophils% 1.2 % (0-5); Hematocrit 45.4 % (40-54); Hemoglobin 15.5 g/dL (13.0-16.5); Lymphocyte # 1.25 X10^3/ul (0.83-4.51); Lymphocyte % 11.2 % (19-41); Mean Corp Hgb Conc 34.1 g/dL (32-36); Mean Corpuscular Hgb 30.6 pg (27.0-32.0); Mean Corpuscular Volume 89.7 fL (80-94); Mean Platelet Vol. 9.9 fl (6.2-12.0); Monocyte# 0.69 X10^3/uL; Monocyte% 6.2 % (0-10); NRBC Flagged by Analyzer 0 % (0-5); Neutrophil # 8.95 X10^3/uL (2.7-7.7); Neutrophil % 80.6 % (47-70); Platelet Count 362 K/mm3 (150-450); RBC Distribution Width CV 13.1 % (11.6-14.6); RBC Distribution Width SD 43.4 fl (35.1-43.9); Red Blood Count 5.06 M/mm3 (4.6-6.2); White Blood Count 11.1 K/mm3 (4.4-11.0)
--- NOTE | 2023-03-10 10:38 | RAD_ITS ---
STUDY: X-RAY CHEST REASON FOR EXAM: Male, 67 years old. Neuro symptoms TECHNIQUE: Single AP portable view of the chest. COMPARISON: Comparison is made with prior study dated March 02, 2023. FINDINGS: EKG electrodes are seen. Mild residual increased linear markings at the left lung base although there has been improvement as compared to prior study. There is no demonstrated pleural abnormality. Normal size heart. Normal mediastinum and eddie. Normal visualized pulmonary arteries. There is atherosclerotic calcification of the aortic arch with tortuosity. There are diffuse degenerative changes of the visualized thoracic spine. Normal visualized ribs, clavicles, and shoulders. There is no demonstrated abnormality of the visualized soft tissue structures of the upper abdomen. RAD/Chest 1 View (Portable) IMPRESSION: Mild residual increased linear markings at the left lung base. There has been improved aeration as compared to prior study. Electronically Signed: Luis Enrique Merchant MD at 11:07 EDT ,
[2023-03-10 10:54] LABS: Anion Gap 8 (5-15); BUN 15 mg/dL (7-18); BUN/Creat Ratio 16.9 RATIO (10-20); Chloride 97 mmol/L (98-107); Creatinine, Serum 0.89 mg/dL (0.70-1.30); EST Glomerular Filtration Rate 90 mL/min (>60); Est Glom Filt Rate - Afr Amer 109 mL/min (>60); Estimated Creatinine Clearance 78.33 ml/min; Glucose 235 mg/dL (74-106); Potassium 3.2 mmol/L (3.5-5.1); Sodium Level 132 mmol/L (136-145)
[2023-03-10 11:03] LABS: CPK Total, Creatine Kinase 98 U/L (39-308)
--- NOTE | 2023-03-10 11:28 | NURSING ---
DR FUNEZ FOR DR LAMAR
--- NOTE | 2023-03-10 12:06 | HP.PCM.HOS_ITS ---
HPI - General General Date of Admission: 03/10/23 Date of Service: 03/10/23 Chief Complaint: Right-sided facial droop HPI Narrative ROSANNA DWYER, is a 67 M with history of type 2 diabetes mellitus, hypertension, recent left arm weakness 1 week ago with negative stroke work-up who presented to [facility] 03/10/2023 with right-sided facial paralysis. 1 week ago when he was here he had a negative CTA and MRI with no contrast before any further work-up could be pursued due to his focal deficit he left AGAINST MEDICAL ADVICE. After returning home his left arm has still been weak but he denies any pain and then this morning his family member noted that the right side of his face was not moving well and that he was not blinking on the right side so he was brought to the hospital. In the ED preliminary work-up unremarkable, hospitalist consulted for admission due to new neurological deficit on top of recent deficit that is already present concerning for underlying neurological problem. Patient evaluated at bedside with family member present. He left AMA 03/03 because he did not like the bed and was frustrated he could not go outside and verbalizes understanding about admission and not being able to leave the premises with his monitoring. He endorses left arm is roughly the same and as above does not have any pain. He is not sure when the right side of his face stopped working well however daughter noted she saw this morning. Patient has had some constipation but had bowel movement last night, reports he has been drinking water, he has [place] at home, but has had somewhat of a poor appetite for a while now. Additionally endorsed that he fell yesterday and trying to move a bucket of water and that it took 5 minutes to get himself up due to the weakness. Bruises easily, feels bilateral vision may not be as well as it usually is, no headache, does not feel he is having difficulty with his speech and denies any numbness, tingling, other weakness. Did not voice any other complaints at this time. [facility] Medical History Diabetes Fracture of femur following insertion of orthopedic implant, joint prosthesis, or bone plate, left leg HTN (hypertension) Kidney stone Home Medications amlodipine 5 mg tablet 5 mg PO DAILY blood pressure 03/02/23 [History Last Taken 03/02/23 15:00] glipizide 10 mg tablet 10 mg PO BID diabetes 03/02/23 [History Last Taken 03/02/23] hydrochlorothiazide 25 mg tablet 25 mg PO DAILY blood pressure 03/02/23 [History Last Taken 03/02/23] lisinopril 40 mg tablet 40 mg PO DAILY blood pressure 03/02/23 [History Last Taken 03/02/23] dulaglutide 1.5 mg/0.5 mL subcutaneous pen injector (Trulicity) 3 mg subcut QWEEK diabetes #2 mL 03/03/23 [Rx Last Taken Unknown] metformin 500 mg tablet 500 mg PO BID diabetes 30 days #60 tabs 03/03/23 [Rx Last Taken Unknown] pioglitazone 15 mg tablet (Actos) 15 mg PO DAILY diabetes #30 tabs 03/03/23 [Rx Last Taken Unknown] aspirin 81 mg capsule 81 mg PO DAILY [facility] 03/10/23 [History Last Taken Unknown] sitagliptin phosphate 50 mg-metformin 1,000 mg tablet (Janumet) 1 tab PO BID diabetes 03/10/23 [History Last Taken Unknown] Allergy/AdvReac Type Severity Reaction Status Date / Time Food Allergies: Uncoded Allergy Severe Anaphylaxis Verified 03/03/23 07:04 morphine AdvReac Other Verified 03/02/23 18:20 Family History Father Emphysema of lung Social History Smoking Status: Never smoker ROS ROS Narrative General: Denies fever/chills HENT: Denies headache, denies stuffy nose, denies sore throat EYES: Trouble blinking right eye, feels vision bilat is not as good as it had been Resp: Denies cough, denies shortness of breath Cardiac: Denies chest pain GI: Denies abdominal pain, had some constipation but did have BM last night, denies nausea/vomiting : Denies changes in urination Extremity: Denies swelling MSK: LUE weakness Neuro: bilat hand carpal tunnel, right sided facial drooping, left arm weakness Heme: Easy bruising Skin: Denies rashes Psychiatric: No complaints voiced Vital Signs Vital Signs Vital Signs: 03/10/23 10:09 03/10/23 10:27 03/10/23 10:28 Temperature 96.8 F L Temperature Source Temporal Pulse Rate 104 H 105 H Respiratory Rate 12 20 H Blood Pressure 151/93 H 151/93 H Blood Pressure Mean 112 112 Pulse Ox 97 97 Oxygen Delivery Method Room Air Room Air 03/10/23 11:22 03/10/23 11:35 03/10/23 12:04 Temperature 98.3 F Temperature Source Oral Pulse Rate 102 H 100 100 Respiratory Rate 14 21 H 21 H Blood Pressure 148/92 H 148/92 H 145/94 H Blood Pressure Mean 110 110 111 Pulse Ox 94 96 96 Oxygen Delivery Method Room Air Room Air Room Air Weight Weight: 84.1 kg Body Mass Index (BMI) 27.3 Physical Exam Narrative General: Alert, oriented, no apparent distress HEENT: Atraumatic, normocephalic Eyes: Anicteric, normal conjunctiva, extraocular movements intact, pupils equal in size, possibly several extra beats of clonus on far right lateral gaze Neck: Supple Respiratory: Clear to auscultation bilaterally, normal respiratory effort Cardiovascular: Regular rate and rhythm GI: Soft, nontender, nondistended Extremities: No edema Musculoskeletal: Strength 5 out of 5 in right upper extremity, left upper extremity with good sustainable development policy analyst strength but 2 out of 5 strength in arm with slightly diminished shoulder shrug, 5 out of 5 right lower extremity, 5 out of 5 left lower extremity Neuro: Moving both hands symmetrically, finger-nose without difficulty on right side, unable to assess left due to patient's weakness, has decreased blink and decreased facial folds on right side of face, tongue midline, no sustained clonus in ankles and reflexes equal Skin: No rashes appreciated Psych: Cooperative Results Lab / Micro Data 03/10/23 10:30 03/10/23 10:30 Labs: Laboratory Results - last 24 hr 03/10/23 10:13: POC Glucose 238 H 03/10/23 10:30: WBC 11.1 H, RBC 5.06, Hgb 15.5, Hct 45.4, MCV 89.7, MCH 30.6, MCHC 34.1, RDW Std Deviation 43.4, RDW Coeff of Krish 13.1, Plt Count 362, MPV 9.9, Immature Gran % (Auto) 0.400, Neut % (Auto) 80.6 H, Lymph % (Auto) 11.2 L, [place] % (Auto) 6.2, Eos % (Auto) 1.2, Baso % (Auto) 0.4, Absolute Neuts (auto) 9.0 H, Absolute Lymphs (auto) 1.25, Nucleated RBC % 0, Sodium 132 L, Potassium 3.2 L, Chloride 97 L, Carbon Dioxide 27.0, Anion Gap 8, BUN 15, Creatinine 0.89, Estim Creat Clear Calc 78.33, Est GFR (MDRD) Af Amer 109, Est GFR (MDRD) Non-Af 90, BUN/Creatinine Ratio 16.9, Glucose 235 H, Calcium 9.0, Total Creatine Kinase [address] 03/10/23 10:14 IMPRESSION: Normal unenhanced CT scan of the brain. Nodular mucosal thickening of the maxillary sinuses bilaterally. Electronically Signed: Luis Enrique Merchant MD at 10:40 EDT , Chest X-Ray 03/10/23 10:38 IMPRESSION: Mild residual increased linear markings at the left lung base. There has been improved aeration as compared to prior study. Electronically Signed: Luis Enrique Merchant MD at 11:07 EDT , Assessment & Plan Assessment/Plan (1) Multiple neurological symptoms: PLAN: Plan #Multiple neurological deficits -Patient initially presented a week ago with left arm weakness and MRI of head without contrast did not reveal stroke, he was advised that he get a C-spine and T-spine image however he left AMA prior to that happening -He now represents with a Duarte's palsy like picture and has the continued left upper extremity deficit -We will check inflammatory markers, guillaume w/ reflex, Lyme disease, syphilis, B12 -We will also check TSH -We will check MRI of the brain, C-spine, T-spine with and without contrast -CTA head and neck unremarkable last admission 1 week ago so do not feel this needs repeated acutely -We will get neurology involved as studies become available -Patient has reported feeling like large pills of been sticking since he was here last so we will consult speech therapy -Given involvement on right side of face both upper and lower do not feel this is stroke related and 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 so do not feel stroke protocol needs to be followed acutely however feel patient does need work-up for other etiologies of these deficits given multiple deficits in short period of time that can be debilitating #Type 2 diabetes mellitus -Glucose checks and sliding scale insulin -Hold oral hypoglycemics at this time -Last A1c 10.3 on 03/03/2023 -Question compliance with his multiple home diabetic medications he did report he was recently out for multiple days but has since refilled them -May need to add basal insulin pending progress #Hypokalemia -Replace, daily BMP #Hypertension -Continue amlodipine #DVT ppx: Lovenox subcu Laurie Nuno MD Time spent in the patient's overall evaluation,decision-making process, review of diagnostic data, adjustment of management, discussion with other providers, nursing nursing and ancillary staff involved in patient's care documentation, 60 minutes Charges/Coding Visit Charges Inpatient E&M: 39356 Init Hosp L2
--- NOTE | 2023-03-10 12:39 | MRI_ITS ---
STUDY: MRI BRAIN WITH AND WITHOUT CONTRAST REASON FOR EXAM: Male, 67 years old. most recent MRI non contrasted, new focal deficits, RT EYE NOT BLINKING, LT ARM WEAKNESS TECHNIQUE: Standardized multiplanar fat and water weighted pulse sequences were obtained. IV 15 ml CLARISCAN was administered for the contrast portion of the examination. COMPARISON: CT of the brain March 10, 2023 MRI of the brain March 03, 2023 FINDINGS: Normal size of the ventricles and extra-axial spaces for the patient''s age. Minor periventricular white matter ischemic changes without mass effect or restricted diffusion. Normal bilateral basal ganglia. Normal thalami. There is no extra-axial fluid accumulation. Normal flow voids within the major intracranial circulation suggesting patency by spin echo criteria. Normal venous enhancement. There is no enhancing intra-axial or extra-axial abnormality. Normal sella turcica, pituitary gland, infundibular stalk, optic chiasm and hypothalamus. Normal tectal plate and pineal gland. Normal midbrain, milagro and medulla. Normal cerebellum. Normal basal cisterns. Normal bilateral temporal bones. Normal bilateral internal auditory canals. No demonstrated orbital abnormality, within the constraints of a routine brain study. Mild mucosal thickening of the maxillary sinuses bilaterally.. Normal calvarium and skull base. Normal visualized soft tissue structures. Normal visualized upper cervical spine. No significant changes since prior study MRI/Brain W/WO Contrast IMPRESSION: Minor periventricular white matter ischemic changes without evidence for acute infarct. No focal mass or other enhancing lesions following contrast administration. Electronically Signed: Clifford Childs MD at 17:49 EDT ,
--- NOTE | 2023-03-10 12:39 | MRI_ITS ---
EXAM: MR THORACIC SPINE WITHOUT AND WITH INTRAVENOUS CONTRAST CLINICAL INDICATION: rec by spine surg before leaving [facility] 1 wk ago RT EYE NOT BLINKING LT ARM WEAKNESS TECHNIQUE: Multiplanar and multisequence MR images of the thoracic spine without and with intravenous contrast. CONTRAST: IV 15 ml CLARISCAN COMPARISON: No relevant prior studies available. FINDINGS: VERTEBRAE: Unremarkable. No fracture. Normal vertebral bodies and posterior elements. Normal alignment. There is preservation of the normal thoracic kyphosis. No scoliosis. DISCS/SPINAL CANAL/NEURAL FORAMINA: Unremarkable. Normal disc height and morphology. Normal spinal canal and neuroforamina. SPINAL CORD: Normal in signal and morphology. No evidence of cord edema or infarct. No abnormal enhancement. SOFT TISSUES: Unremarkable. No hematoma. KIDNEYS AND URETERS: Left hydronephrosis versus parapelvic cysts, partially imaged. No enhancing lesion. MRI/Spine Thoracic W/WO Contrast IMPRESSION: Negative thoracic spine. Left hydronephrosis versus parapelvic cysts, partially imaged. Electronically Signed: Dixie Rosario MD at 18:48 EDT Reading Location ID and State: [id number] / Tel , Service support ,
--- NOTE | 2023-03-10 12:39 | MRI_ITS ---
STUDY: MRI CERVICAL SPINE WITH AND WITHOUT CONTRAST REASON FOR EXAM: Male, 67 years old. eval for white matter lesions or impingement, RT EYE NOT BLINKING, LT ARM WEAKNESS TECHNIQUE: Standardized fat and water weighted pulse sequences were obtained in the sagittal and axial following administration of IV 15 ml CLARISCAN. COMPARISON: None FINDINGS: Normal foramen magnum and brainstem-cervical cord junction. Normal craniovertebral junction. Normal anterior atlantoaxial articulation. Normal odontoid process. Normal cervical lordosis. Normal vertebral bodies and posterior osseous elements. C2-3: Normal endplates. Normal disc height, signal and morphology. Normal central canal and intervertebral neural foramina. C3-4: Normal endplates. Normal disc height, signal and tiny left foraminal disc/osteophyte protrusion.. Normal central canal. Mild to moderate narrowing of left nerve root foramen C4-5: Normal endplates. Normal disc height, signal and morphology. Normal central canal. Moderate bilateral neural foraminal encroachment secondary to bony hypertrophy.. C5-6: Normal endplates. Normal disc height, signal and small broad-based right paracentral disc protrusion. Mild narrowing of the central canal and impingement upon the cord. Moderate to severe narrowing right nerve root foramen secondary to bony encroachment C6-7: Narrowed disc space and endplate spurring with tiny central calcific disc or osteophyte protrusion. Mild narrowing of central canal. Severe right neural foraminal stenosis secondary to bony hypertrophy C7-T1: Normal endplates. Normal disc height, signal and morphology. Normal central canal and intervertebral neural foramina. On T1-weighted imaging sequences there does appear to be tiny linear focus of enhancement within the anterior central cord likely representing lipomatous infiltration of the liver. No enhancing lesions following contrast menstruation Normal visualized soft tissue structures. MRI/Spine Cervical W/WO Contrast IMPRESSION: No evidence for acute fracture or other significant bony pathology.. Multilevel spinal stenosis secondary to disc disease and bony hypertrophy Findings as above Electronically Signed: Clifford Childs MD at 18:55 EDT ,
[2023-03-10 13:27] LABS: CRP 6.02 mg/L (0.0-3.0)
[2023-03-10 13:30] LABS: Erythrocyte Sedimentation Rate 58 mm/hr (0-20)
[2023-03-10 13:48] LABS: HIV - WCH Non-Reactive (Nonreactive); Syphilis Antibodies Non-reactive; Vitamin B12 402 pg/mL (211-911); Vitamin D,25 Hydroxy 27.6 ng/mL
[2023-03-10] MEDS: 0.9% Normal Saline 1,000 ML 100 ML IV (13:48)
[2023-03-10] MEDS: Potassium Chloride Oral Soln 20 MEQ/15 ML UDC 40 MEQ PO (13:49)
[2023-03-10] MEDS: LORazepam 0.5 MG Tablet PO (14:11)
--- NOTE | 2023-03-10 14:40 | NURSING ---
Patient off floor to MRI
[2023-03-10] MEDS: Insulin Lispro 100 UNIT/ML INSULN.PEN SC ×2 (17:33→21:55)
[2023-03-10] MEDS: 0.9% Saline Lock 10 ML Syringe IV (17:36)
[2023-03-10 18:00] LABS: Bedside Glucose 249 mg/dL (74-106)
[2023-03-10 21:33] LABS: Bacteria 0 SEEN /hpf (None Seen); Mucous, Urine 0 SEEN /hpf (<or=2+); Red Blood Cells-Urine 0 SEEN /hpf (0-5); Squamous Epithelial Cells - UA 0 SEEN /hpf (0-5); White Blood Cells 0 SEEN /hpf (0-5)
[2023-03-10 21:41] LABS: Color, Urine Yellow (Yellow); Glucose, Dipstick 1000 mg/dl (Normal); Ketone-Dipstick 5 mg/dl (Negative); Leukocyte Esterase-Dipstick Negative /ul (Negative); Nitrite-Dipstick Negative (Negative); Occult Blood-Urine 10 /ul (Negative); Protein-Dipstick Negative (Negative); Specific Gravity, Urine 1.015 (1.002-1.030); Urine Bilirubin Dipstick Negative (Negative); Urine Clarity Clear (Clear); Urine Urobilinogen Normal (Normal)
[2023-03-10] MEDS: Senna/Docusate Sodium 1 Tablet 2 TABLET PO (21:54)
[2023-03-10 22:15] LABS: Bedside Glucose 306 mg/dL (74-106)
[2023-03-10] MEDS: MELATONIN 10 MG TABLET PO (22:56)
[2023-03-11 00:45] VITALS: BP 168/94; PULSE 98; RESP 16; TEMP 36.4; O2SAT 94
[2023-03-11 06:19] LABS: Absolute Lymphocyte Count 1.15 X10^3/uL (0.83-4.51); Absolute Neutrophil Count 7.5 X10^3/uL (2.0-7.7); Basophil# 0.05 X10^3/uL; Basophil% 0.5 % (0-1); Eosinophil# 0.14 X10^3/uL; Eosinophils% 1.5 % (0-5); Hematocrit 42.8 % (40-54); Hemoglobin 14.6 g/dL (13.0-16.5); Lymphocyte # 1.15 X10^3/ul (0.83-4.51); Mean Corp Hgb Conc 34.1 g/dL (32-36); Mean Corpuscular Hgb 30.5 pg (27.0-32.0); Mean Corpuscular Volume 89.4 fL (80-94); Mean Platelet Vol. 11.3 fl (6.2-12.0); Monocyte# 0.66 X10^3/uL; Monocyte% 6.9 % (0-10); NRBC Flagged by Analyzer 0 % (0-5); Neutrophil # 7.54 X10^3/uL (2.7-7.7); Neutrophil % 78.8 % (47-70); Platelet Count 321 K/mm3 (150-450); RBC Distribution Width CV 13.1 % (11.6-14.6); RBC Distribution Width SD 42.5 fl (35.1-43.9); Red Blood Count 4.79 M/mm3 (4.6-6.2); White Blood Count 9.6 K/mm3 (4.4-11.0)
[2023-03-11 06:29] VITALS: BP 174/104; PULSE 95; RESP 18; TEMP 36.6; O2SAT 95
[2023-03-11] MEDS: 0.9% Saline Lock 10 ML Syringe IV ×2 (06:36→22:38)
[2023-03-11] MEDS: Insulin Lispro 100 UNIT/ML INSULN.PEN SC ×4 (06:39→21:15)
[2023-03-11] MEDS: Acetaminophen 325 MG Tablet 650 MG PO (06:40)
[2023-03-11 07:00] LABS: Bedside Glucose 233 mg/dL (74-106)
[2023-03-11 07:05] LABS: AST(SGOT) 19 U/L (15-37); Alanine Aminotransfer ALT/SGPT 48 U/L (16-61); Albumin, Serum 2.8 g/dL (3.2-5.0); Alkaline Phosphatase 80 U/L (45-117); Anion Gap 7 (5-15); BUN 13 mg/dL (7-18); BUN/Creat Ratio 19.9 RATIO (10-20); Bilirubin, Direct 0.15 mg/dL (0.00-0.30); Calcium,Total 8.4 mg/dL (8.5-10.1); Chloride 98 mmol/L (98-107); Creatinine, Serum 0.65 mg/dL (0.70-1.30); EST Glomerular Filtration Rate 128 mL/min (>60); Est Glom Filt Rate - Afr Amer 155 mL/min (>60); Estimated Creatinine Clearance 69.72 ml/min; Globulin 4.3 g/dL (2.2-4.2); Glucose 240 mg/dL (74-106); Magnesium 1.8 mg/dL (1.6-2.6); Phosphorus 2.5 mg/dL (2.5-4.9); Potassium 3.3 mmol/L (3.5-5.1); Protein, Total 7.1 g/dL (6.4-8.2); Sodium Level 131 mmol/L (136-145)
[2023-03-11] MEDS: amLODIPine 5 MG Tablet PO ×2 (08:24→11:41)
[2023-03-11] MEDS: Aspirin 81 MG TAB.CHEW PO (08:24)
[2023-03-11] MEDS: predniSONE 20 MG Tablet 60 MG PO (08:24)
[2023-03-11] MEDS: Potassium Chloride Oral Soln 20 MEQ/15 ML UDC 40 MEQ PO (08:24)
[2023-03-11 09:00] VITALS: BP 144/105; PULSE 89; RESP 14; TEMP 36.6; O2SAT 98
[2023-03-11 09:05] LABS: Erythrocyte Sedimentation Rate 39 mm/hr (0-20)
[2023-03-11 09:42] LABS: CRP 6.09 mg/L (0.0-3.0)
[2023-03-11 12:09] LABS: Bedside Glucose 312 mg/dL (74-106)
--- NOTE | 2023-03-11 12:47 | PCM.PN.HOSP ---
Reason for Visit Reason for Visit: Diagnoses Unspecified symptoms and signs involving the nervous system (03/10/23) Subjective Subjective Patient tired today, deficits unchanged Objective Data Objective Data Vital Signs: Vital Signs Temp Pulse Resp BP Pulse Ox O2 Del Method 97.9 F 89 14 144/105 H 98 Room Air 03/11/23 09:00 03/11/23 09:00 03/11/23 09:00 03/11/23 09:00 03/11/23 09:00 03/11/23 09:00 Oxygen Delivery Method Room Air Weight: 78.8 kg Body Mass Index (BMI) 25.6 Intake & Output: Intake and Output for Last 24 Hours 03/09/23 03/10/23 03/11/23 23:59 23:59 23:59 Intake Total 1735.00 / 1735.00 300 / 300 Balance 1735.00 / 1735.00 300 / 300 Lab / Micro Data 03/11/23 05:16 03/11/23 05:16 Labs: Laboratory Results - last 24 hr 03/10/23 10:30: ESR 58 H, C-React Prot Ext Range 6.02 H, Vitamin B12 402, Vitamin D 25-Hydroxy 27.6, Folate 12.60, Syphilis Total Ab Non-reactive, HIV 1&2 Antibody Non-Reactive 03/10/23 17:31: POC Glucose 249 H 03/10/23 19:10: Urine Color Yellow, Urine Clarity Clear, Urine pH 6.0, Ur Specific [place] 1.015, Urine Protein Negative, Urine Glucose (UA) 1000 H, Urine Ketones 5 H, Urine Occult Blood 10 H, Urine Nitrite Negative, Urine Bilirubin Negative, Urine Urobilinogen Normal, Ur Leukocyte Esterase Negative, Urine RBC 0 SEEN, Urine WBC 0 SEEN, Ur Squamous Epith Cells 0 SEEN, Urine Bacteria 0 SEEN, Urine Mucus 0 SEEN 03/10/23 21:51: POC Glucose 306 H 03/11/23 05:16: WBC 9.6, RBC 4.79, Hgb 14.6, Hct 42.8, MCV 89.4, MCH 30.5, MCHC 34.1, RDW Std Deviation 42.5, RDW Coeff of Krish 13.1, Plt Count 321, MPV 11.3, Immature Gran % (Auto) 0.300, Neut % (Auto) 78.8 H, Lymph % (Auto) 12.0 L, [place] % (Auto) 6.9, Eos % (Auto) 1.5, Baso % (Auto) 0.5, Absolute Neuts (auto) 7.5, Absolute Lymphs (auto) 1.15, Nucleated RBC % 0, ESR 39 H, PT 13.0, INR 1.0, Sodium 131 L, Potassium 3.3 L, Chloride 98, Carbon Dioxide 26.0, Anion Gap 7, BUN 13, Creatinine 0.65 L, Estim Creat Clear Calc 69.72, Est GFR (MDRD) Af Amer 155, Est GFR (MDRD) Non-Af 128, BUN/Creatinine Ratio 19.9, Glucose 240 H, Calcium 8.4 L, Phosphorus 2.5, Magnesium 1.8, Total Bilirubin 0.50, Direct Bilirubin 0.15, AST 19, ALT 48, Alkaline Phosphatase 80, C-React Prot Ext Range 6.09 H, Total Protein 7.1, Albumin 2.8 L, Globulin 4.3 H, TSH 1.90 03/11/23 06:37: POC Glucose 233 H 03/11/23 11:40: POC Glucose 312 H Radiography Diagnostic Testing: Radiology Impression Brain MRI 03/10/23 12:39 IMPRESSION: Minor periventricular white matter ischemic changes without evidence for acute infarct. No focal mass or other enhancing lesions following contrast administration. Electronically Signed: Clifford Childs MD at 17:49 EDT , Cervical Spine MRI 03/10/23 12:39 IMPRESSION: No evidence for acute fracture or other significant bony pathology.. Multilevel spinal stenosis secondary to disc disease and bony hypertrophy Findings as above Electronically Signed: Clifford Childs MD at 18:55 EDT , Thoracic Spine MRI 03/10/23 12:39 IMPRESSION: Negative thoracic spine. Left hydronephrosis versus parapelvic cysts, partially imaged. Electronically Signed: Dixie Rosario MD at 18:48 EDT , Rhythm Strip Rhythm Strip: Sinus Rhythm Rate: 100 Ectopy: None Physical Exam Narrative General: Alert, oriented, no apparent distress HEENT: Atraumatic, right-sided facial droop Eyes: Anicteric, right-sided facial droop Neck: Supple Respiratory: Clear to auscultation bilaterally, normal respiratory effort Cardiovascular: Regular rate and rhythm GI: Soft, nontender, nondistended Extremities: No edema Musculoskeletal: Moving all extremities Neuro: Continues to have right-sided facial droop and left-sided extremity weakness Skin: No rashes appreciated Psych: Cooperative Assessment & Plan Assessment/Plan (1) Multiple neurological symptoms: PLAN: Plan #Rapidly progressive neurological deficits -Patient initially presented a week ago with left arm weakness and MRI of head without contrast did not reveal stroke, he was advised that he get a C-spine and T-spine image however he left AMA prior to that happening -He now represents with a Duarte's palsy like picture and has the continued left upper extremity deficit -We will check inflammatory markers, guillaume w/ reflex, Lyme disease, syphilis, B12 -We will also check TSH -We will check MRI of the brain, C-spine, T-spine with and without contrast -CTA head and neck unremarkable last admission 1 week ago so do not feel this needs repeated acutely -We will get neurology involved as studies become available -Patient has reported feeling like large pills of been sticking since he was here last so we will consult speech therapy -Given involvement on right side of face both upper and lower do not feel this is stroke related and 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 Spoke with neurologist who recommended MRI of the brachial plexus with and without contrast to assess for any infiltrative disorder. Additionally given his 11 pound weight loss in 1 week and fatigue neurology concerned that there could be underlying malignancy causing paraneoplastic syndrome and recommended CT chest/abdomen/pelvis. Additionally requested LP performed with studies as per note and likely outpt EMG/NCS. Neuro additionally agreed w/ lyme and autoimmune w/u amd had no additional serum recs #Type 2 diabetes mellitus -Glucose checks and sliding scale insulin -Hold oral hypoglycemics at this time -Last A1c 10.3 on 03/03/2023 -Question compliance with his multiple home diabetic medications he did report he was recently out for multiple days but has since refilled them -May need to add basal insulin pending progress -03/11: Adding basil insulin #Hypokalemia -Replace, daily BMP #Hypertension -Continue amlodipine -03/11: Increase dose of amlodipine #DVT ppx: Lovenox subcu on hold for LP Laurie Nuno MD Time spent in the patient's overall evaluation,decision-making process, review of diagnostic data, adjustment of management, discussion with other providers, nursing nursing and ancillary staff involved in patient's care documentation, 58 minutes Charges/Coding Visit Charges Inpatient E&M: 07630 Subs Hosp L3
--- NOTE | 2023-03-11 12:57 | MRI_ITS ---
STUDY: MRI LEFT BRACHIAL PLEXUS WITH AND WITHOUT CONTRAST REASON FOR EXAM: Male, 67 years old. BRACHIAL PLEXUS w/ w/o contrast TO ASSESS FOR INFT -- ASSESS FOR INFILTRATIVE DISORDER TECHNIQUE: Standardized fat and water weighted pulse sequences were obtained in all 3 orthogonal planes, pre-and post contrast administration. IV 15ML CLARISCAN was administered for the contrast portion of the examination. COMPARISON: MRI of the cervical spine dated March 10, 2023. CT of the chest dated March 11, 2023 FINDINGS: No demonstrated abnormality in the course of the roots, trunks, divisions or cords of the brachial plexus. There is no demonstrated neural enlargement, neural edema or enhancement of the brachial plexus. Normal visualized subclavian artery and vein. Normal muscles of the rotator cuff. Small joint effusions are seen in the bilateral shoulder joints, left greater than right. A small area of full-thickness tearing is present at the rotator interval insertion site of the supraspinatus measuring 1.62 cm in diameter. There is mild osteoarthritis of the AC joint as well. Trace pleural fluid is seen in the right lung. Subsegmental atelectasis is present in the superior segment of the left lower lobe. No visualized mediastinal lymphadenopathy or retrosternal abnormality. MRI/Upper Ext No Joint W/WO Cont IMPRESSION: 1. Normal unenhanced and enhanced MRI of the brachial plexus. 2. Small joint effusions are seen in the bilateral shoulder joints, left greater than right. A small area of full-thickness tearing is present at the rotator interval insertion site of the supraspinatus measuring 1.62 cm in diameter. There is mild osteoarthritis of the AC joint as well. Electronically Signed: Yared Lebron MD at 8:44 EDT ,
[2023-03-11 13:08] LABS: ANTINUCLEAR ANTIBODIES DIRECT Negative (Negative)
--- NOTE | 2023-03-11 14:10 | CT_ITS ---
STUDY: CT CHEST, ABDOMEN T PELVIS WITH CONTRAST REASON FOR EXAM: Male, 67 years old. Assess for possible cancer unknown location RADIATION DOSAGE (If Supplied By Facility): CTDIvol = ( 16.52 ) mGy, DLP = ( 2325.94 ) mGycm TECHNIQUE: Transaxial imaging was performed following intravenous administration of IV 100mL Isovue-300. Multiplanar coronal and sagittal images were reformatted. Individualized dose optimization techniques were used for this CT. COMPARISON: No relevant priors. FINDINGS: CHEST Small benign-appearing bilateral axillary lymph nodes. There is a 9.4 mm noncalcified nodule in the left upper lobe as seen on axial image #47. Increased markings are seen at both lung bases worse on the left side suggestive of bibasilar atelectasis and/or early infiltrate. There is no demonstrated pleural abnormality. There are calcifications of the coronary arteries. Normal mediastinum. Normal hilar regions. Normal unenhanced pulmonary arteries. There is atherosclerotic calcification of the aortic arch with tortuosity and elongation of the aortic arch and descending thoracic aorta. There are multi-level degenerative changes of the thoracic spine. Left adrenal hyperplasia. Fatty infiltration of the liver. ABDOMEN There is decreased attenuation of the liver consistent with steatosis. Small gallstones are seen in the dependent portion of the gallbladder lumen. Normal spleen. Normal pancreas. There is hyperplasia of the left adrenal gland. Parapelvic cysts are seen in both kidneys. Normal visualized stomach. Normal small intestine. There are multiple colonic diverticula consistent with diverticulosis. The appendix is visualized and appears normal. There is scattered atherosclerotic calcification of the abdominal aorta, without a demonstrated aneurysm. Normal inferior vena cava. Normal retroperitoneum. Normal abdominal wall. There are diffuse degenerative changes of the visualized lumbar spine. PELVIS Normal urinary bladder. The prostate is enlarged. It measures 4.9 cm x 4.9 cm. This causes indentation of the bladder base. There is prominence of the seminal vesicles bilaterally. Normal visualized small intestine. Normal visualized colon. There is no pelvic fluid. There is no pelvic lymphadenopathy or mass lesion. Normal visualized pelvic arteries. Normal abdominal wall. There are diffuse degenerative changes of the visualized lumbar spine. CT/CT Chest, Abd, Pel w/Contrast IMPRESSION: 9.4 mm noncalcified nodule in the left upper lobe axial and axial image #47. Fatty infiltration of the liver. Small gallstones along the dependent portion of the gallbladder lumen. Left adrenal hyperplasia. Bilateral parapelvic cysts in the kidneys. Electronically Signed: Luis Enrique Merchant MD at 15:20 EDT ,
[2023-03-11 15:00] VITALS: BP 134/90; PULSE 88; RESP 14; TEMP 36.6; O2SAT 96
[2023-03-11] MEDS: Insulin Glargine-YFGN 100 UNIT/ML Pen 10 UNIT SC (16:29)
[2023-03-11 17:29] LABS: Bedside Glucose 349 mg/dL (74-106)
--- NOTE | 2023-03-11 21:00 | NURSING ---
Pt returned from testing. Update given to patient's family as for his current treatment and plan for care. Son is requesting physician call tomorrow regarding treatment plan and options.
[2023-03-11 21:09] VITALS: BP 135/77; PULSE 92; RESP 18; TEMP 36.9; O2SAT 94
[2023-03-11 22:08] LABS: Bedside Glucose 384 mg/dL (74-106)
[2023-03-11] MEDS: Ibuprofen 200 MG Tablet PO (22:37)
[2023-03-12] VITALS (10 sets, daily range): BP systolic 140–153; BP diastolic 82–103; PULSE 65–109; RESP 16–18; TEMP 36.1–36.7; O2SAT 92–97
[2023-03-12] MEDS: Ibuprofen 200 MG Tablet PO (04:56)
[2023-03-12 06:05] LABS: Absolute Lymphocyte Count 1.09 X10^3/uL (0.83-4.51); Absolute Neutrophil Count 8.6 X10^3/uL (2.0-7.7); Basophil# 0.04 X10^3/uL; Basophil% 0.4 % (0-1); Eosinophil# 0.16 X10^3/uL; Eosinophils% 1.5 % (0-5); Hematocrit 41.9 % (40-54); Hemoglobin 14.2 g/dL (13.0-16.5); Lymphocyte # 1.09 X10^3/ul (0.83-4.51); Lymphocyte % 10.3 % (19-41); Mean Corp Hgb Conc 33.9 g/dL (32-36); Mean Corpuscular Hgb 30.5 pg (27.0-32.0); Mean Corpuscular Volume 89.9 fL (80-94); Mean Platelet Vol. 10.1 fl (6.2-12.0); Monocyte# 0.67 X10^3/uL; Monocyte% 6.3 % (0-10); NRBC Flagged by Analyzer 0 % (0-5); Neutrophil # 8.62 X10^3/uL (2.7-7.7); Neutrophil % 81.1 % (47-70); Platelet Count 323 K/mm3 (150-450); RBC Distribution Width CV 13.2 % (11.6-14.6); RBC Distribution Width SD 43.4 fl (35.1-43.9); Red Blood Count 4.66 M/mm3 (4.6-6.2); White Blood Count 10.6 K/mm3 (4.4-11.0)
[2023-03-12 06:39] LABS: ALB/GLOB Ratio 0.6 RATIO (0.9-2.4); AST(SGOT) 12 U/L (15-37); Alanine Aminotransfer ALT/SGPT 47 U/L (16-61); Albumin, Serum 2.7 g/dL (3.2-5.0); Alkaline Phosphatase 80 U/L (45-117); Anion Gap 4 (5-15); BUN 19 mg/dL (7-18); BUN/Creat Ratio 22.1 RATIO (10-20); Calcium,Total 8.7 mg/dL (8.5-10.1); Chloride 103 mmol/L (98-107); Creatinine, Serum 0.86 mg/dL (0.70-1.30); EST Glomerular Filtration Rate 94 mL/min (>60); Est Glom Filt Rate - Afr Amer 113 mL/min (>60); Estimated Creatinine Clearance 81.07 ml/min; Globulin 4.2 g/dL (2.2-4.2); Glucose 260 mg/dL (74-106); Potassium 3.6 mmol/L (3.5-5.1); Protein, Total 6.9 g/dL (6.4-8.2); Sodium Level 133 mmol/L (136-145)
[2023-03-12] MEDS: Insulin Lispro 100 UNIT/ML INSULN.PEN SC ×4 (06:49→21:31)
--- NOTE | 2023-03-12 06:57 | PN.HOSP_ITS ---
Reason for Visit Reason for Visit: Diagnoses Unspecified symptoms and signs involving the nervous system (03/11/23) Subjective Subjective Patient feeling better this morning than yesterday, eating well, was having some irritation of his right eye is now wearing the eye patch Objective Data Objective Data Vital Signs: Vital Signs Temp Pulse Resp BP Pulse Ox O2 Del Method 98.0 F 108 H 16 152/85 H 95 Room Air 03/12/23 04:37 03/12/23 04:37 03/12/23 04:37 03/12/23 04:37 03/12/23 04:37 03/12/23 04:58 Oxygen Delivery Method Room Air Weight: 78.8 kg Body Mass Index (BMI) 25.6 Intake & Output: Intake and Output for Last 24 Hours 03/10/23 03/11/23 03/12/23 23:59 23:59 23:59 Intake Total 1735.00 / 1735.00 300 / 300 400 / 400 Balance 1735.00 / 1735.00 300 / 300 400 / 400 Lab / Micro Data 03/12/23 05:45 03/12/23 05:45 Labs: Laboratory Results - last 24 hr 03/10/23 10:30: GUILLAUME Screen Negative, WALKER-1 Antibody Not Reportable, SS-A/Ro IgG Antibody Not Reportable, SS-B/La IgG Antibody Not Reportable, Sm ([place]) Antibody Not Reportable, [employer] Antibody Not Reportable, Scl-70 Scleroderma Ab Not Reportable, Double Strand DNA Ab Not Reportable, Centromere B Antibody Not Reportable 03/11/23 05:16: ESR 39 H, Sodium 131 L, Potassium 3.3 L, Chloride 98, Carbon Dioxide 26.0, Anion Gap 7, BUN 13, Creatinine 0.65 L, Estim Creat Clear Calc 69.72, Est GFR (MDRD) Af Amer 155, Est GFR (MDRD) Non-Af 128, BUN/Creatinine Ratio 19.9, Glucose 240 H, Calcium 8.4 L, Phosphorus 2.5, Magnesium 1.8, Total Bilirubin 0.50, Direct Bilirubin 0.15, AST 19, ALT 48, Alkaline Phosphatase 80, C-React Prot Ext Range 6.09 H, Total Protein 7.1, Albumin 2.8 L, Globulin 4.3 H, TSH 1.90 03/11/23 06:37: POC Glucose 233 H 03/11/23 11:40: POC Glucose 312 H 03/11/23 16:28: POC Glucose 349 H 03/11/23 21:07: POC Glucose 384 H 03/12/23 05:45: WBC 10.6, RBC 4.66, Hgb 14.2, Hct 41.9, MCV 89.9, MCH 30.5, MCHC 33.9, RDW Std Deviation 43.4, RDW Coeff of Krish 13.2, Plt Count 323, MPV 10.1, Immature Gran % (Auto) 0.400, Neut % (Auto) 81.1 H, Lymph % (Auto) 10.3 L, [place] % (Auto) 6.3, Eos % (Auto) 1.5, Baso % (Auto) 0.4, Absolute Neuts (auto) 8.6 H, Absolute Lymphs (auto) 1.09, Nucleated RBC % 0, Sodium 133 L, Potassium 3.6, Chloride 103, Carbon Dioxide 26.0, Anion Gap 4 L, BUN 19 H, Creatinine 0.86, Estim Creat Clear Calc 81.07, Est GFR (MDRD) Af Amer 113, Est GFR (MDRD) Non-Af 94, BUN/Creatinine Ratio 22.1 H, Glucose 260 H, Calcium 8.7, Total Bilirubin 0.30, AST 12 L, ALT 47, Alkaline Phosphatase 80, C-React Prot Ext Range 6.10 H, Total Protein 6.9, Albumin 2.7 L, Globulin 4.2, Albumin/Globulin Ratio 0.6 L Radiography Diagnostic Testing: Radiology Impression Chest/Abdomen/Pelvis CT 03/11/23 14:10 IMPRESSION: 9.4 mm noncalcified nodule in the left upper lobe axial and axial image #47. Fatty infiltration of the liver. Small gallstones along the dependent portion of the gallbladder lumen. Left adrenal hyperplasia. Bilateral parapelvic cysts in the kidneys. Electronically Signed: Luis Enrique Merchant MD at 15:20 EDT , Rhythm Strip Rhythm Strip: Sinus Rhythm Rate: 100 Ectopy: None Physical Exam Narrative General: Alert, oriented, no apparent distress HEENT: Atraumatic, right-sided facial droop Eyes: Anicteric, right-sided facial droop, right eye patched Neck: Supple Respiratory: Clear to auscultation bilaterally, normal respiratory effort Cardiovascular: Regular rate and rhythm GI: Soft, nontender, nondistended Extremities: No edema Musculoskeletal: Moving all extremities Neuro: Continues to have right-sided facial droop and left-sided extremity weakness Skin: No rashes appreciated Psych: Cooperative Assessment & Plan Assessment/Plan (1) Multiple neurological symptoms: PLAN: Plan #Rapidly progressive neurological deficits -Patient initially presented a week ago with left arm weakness and MRI of head without contrast did not reveal stroke, he was advised that he get a C-spine and T-spine image however he left AMA prior to that happening -He now represents with a Duarte's palsy like picture and has the continued left upper extremity deficit -We will check inflammatory markers, guillaume w/ reflex, Lyme disease, syphilis, B12 -We will also check TSH -We will check MRI of the brain, C-spine, T-spine with and without contrast -CTA head and neck unremarkable last admission 1 week ago so do not feel this needs repeated acutely -We will get neurology involved as studies become available -Patient has reported feeling like large pills of been sticking since he was here last so we will consult speech therapy -Given involvement on right side of face both upper and lower do not feel this is stroke related and 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 Spoke with neurologist who recommended MRI of the brachial plexus with and without contrast to assess for any infiltrative disorder. Additionally given his 11 pound weight loss in 1 week and fatigue neurology concerned that there could be underlying malignancy causing paraneoplastic syndrome and recommended CT chest/abdomen/pelvis. Additionally requested LP performed with studies as per note and likely outpt EMG/NCS. Neuro additionally agreed w/ lyme and autoimmune w/u amd had no additional serum recs -03/12: LP and MRI pending, CRP roughly unchanged, ESR had slightly improved, autoimmune work-up thus far negative, Lyme antibody pending. CT chest/abd omen/pelvis with a 9.4 mm noncalcified nodule in left upper lobe which he endorses he has had for 5 to 6 years and is being monitored and prostate enlarged, additionally had left adrenal hyperplasia and bilateral parapelvic cysts in the kidneys, all of unclear significance #Noncalcified nodule left upper lobe -Seen on CT of the chest, 9.4 mm noncalcified nodule left upper lobe axial image #47 -Unclear significance at this time the patient reports he has a 10 mm nodule in his left lobe that has been monitored for the past 5 years without change #Hypokalemia and left adrenal hyperplasia -Replace, daily BMP -03/12: Checking renin/aldosterone given the hyperplasia and hypokalemia as well as hypertension to verify no hyperaldosteronism at present #Type 2 diabetes mellitus -Glucose checks and sliding scale insulin -Hold oral hypoglycemics at this time -Last A1c 10.3 on 03/03/2023 -Question compliance with his multiple home diabetic medications he did report he was recently out for multiple days but has since refilled them -May need to add basal insulin pending progress -03/11: Adding basil insulin -03/12: Continue to adjust medications #Hypertension -Continue amlodipine -03/11: Increase dose of amlodipine #DVT ppx: Lovenox subcu on hold for LP Laurie Nuno MD Time spent in the patient's overall evaluation,decision-making process, review of diagnostic data, adjustment of management, discussion with other providers, nursing nursing and ancillary staff involved in patient's care documentation, 56 minutes Charges/Coding Visit Charges Inpatient E&M: 47218 Subs Hosp L3
[2023-03-12 07:08] LABS: Erythrocyte Sedimentation Rate 38 mm/hr (0-20)
[2023-03-12 07:14] LABS: Bedside Glucose 354 mg/dL (74-106)
--- NOTE | 2023-03-12 07:43 | NURSING ---
Dr Nuno was notified of pt's son's request for a phone call to discuss care plan. States will call this afternoon after testing is done today.
--- NOTE | 2023-03-12 07:49 | NURSING ---
Documentation from Merlyn CHAVEZ [facility] reviewed.
[2023-03-12] MEDS: Senna/Docusate Sodium 1 Tablet 2 TABLET PO ×2 (09:57→21:38)
[2023-03-12] MEDS: amLODIPine 10 MG Tablet PO (09:57)
--- NOTE | 2023-03-12 10:30 | RAD_ITS ---
PROCEDURE: Fluoroscopic guided Lumbar Puncture. DATE: March 12, 2023. CLINICAL INDICATION: Progressive cranial nerve palsies. PHYSICIAN: Luis Enrique Merchant M.D. MEDICATIONS: 1% lidocaine administered subcutaneously for local anesthesia. ACCESS SITE: Lower posterior back. NEEDLE: 22-gauge spinal needle. SPECIMEN: Approximately 12 mL clear]CSF fluid. FLUOROSCOPY TIME (if supplied): (1:28) minutes/seconds. 45.66 mGy COMPLICATIONS: None immediate. The risks, benefits, and alternatives to the procedure were explained to the patient. The specific risks of bleeding, infection, and neurovascular injury were detailed and accepted. Witnessed informed consent was obtained. The patient was placed on the fluoroscopic table in the prone position. The level for needle entry was determined and marked. The overlying skin was cleaned and prepped in the usual sterile fashion. 2% lidocaine was administered subcutaneously for local anesthesia. Under fluoroscopic guidance a 22-gauge spinal needle was advanced. The thecal sac was entered at the L2-L3 vertebral level. The inner stylet was removed. There was spontaneous flow of clear CSF fluid. The patient was placed in a reversed Trendelenburg position. Approximately 12 mL of cerebrospinal fluid was collected using gravity. The specimen was collected and submitted to the laboratory for further evaluation. The needle was withdrawn,. Hemostasis was achieved and a sterile dressing placed. The patient tolerated the procedure well without any immediate complications. The patient was placed supine with head elevated and returned to the floor in stable condition. RAD/Dx Lumbar Puncture w/IMG Guide IMPRESSION: Successful fluoroscopic-guided lumbar puncture. Electronically Signed: Luis Enrique Merchant MD at 12:47 EDT ,
--- NOTE | 2023-03-12 10:59 | CYSPIN_PTH ---
PATIENT: ROSANNA DWYER Sr. LOC: PCU U#:[id number] AGE/SX: 67/M ROOM: [facility] RE03/11/[address]: Dr. Laurie Nuno MD : [id number] BED: 1 DIS: 03/13/2023 SPEC #: [id number] RECD: 03/12/23 13:43 STATUS: AXEL REQ #: [id number] MAURICIO: 03/12/23 10:[address]: Laurie Nuno DEPT: CYTOLOGY RECD BY: Amber Parada ENTERED: 03/12/23 13:44 SP TYPE: CYSPIN FL OTHR DR: Milag[facility] Tissues: Cerebrospinal Fluid Procedures: Pap Stain (control) Special Stain Group II Cytospin Fluid HEADER OPERATION: Lumbar puncture PRE-OP DIAGNOSIS: Multiple neuro deficits TISSUE SUBMITTED: Cerebrospinal fluid for cytology DIAGNOSIS CYTOLOGY Cerebrospinal fluid for cytology (cytospin): Negative for malignant cells. See comment. AM:chuy 03/13/2023 COMMENT Clinical correlation is suggested. CYTOLOGY STUDY Slides are reviewed. CYTOLOGY GROSS Received is 4 ml of clear fluid labeled with the patient's name and and designated per the requisition as CSF. Submitted for cytology preparation including cell block. / chuy 03/12/2023 TC:5 CPT: 95060, 76875
[2023-03-12 11:11] LABS: Cytology, Body Fluid / CSF SEE PATHOLOGY REPORT
[2023-03-12 11:31] LABS: Tested Tube # 1
[2023-03-12 11:32] LABS: Appearance CSF (character) CLEAR (Clear); CSF Color COLORLESS (Colorless)
[2023-03-12 11:33] LABS: Glucose Spinal Fluid 160 mg/dL (40-75)
[2023-03-12 11:34] LABS: RBC Count, Spinal Fluid 5 /mm-3 (None seen); White Count, CSF 35 /mm-3 (0 - 5)
[2023-03-12 11:37] LABS: CSF Color COLORLESS (Colorless); Tested Tube # 4
[2023-03-12 11:38] LABS: Appearance CSF (character) CLEAR (Clear); RBC Count, Spinal Fluid 0 /mm-3 (None seen)
[2023-03-12 11:39] LABS: White Count, CSF 10 /mm-3 (0 - 5)
[2023-03-12 12:00] LABS: Lymphocytes,CSF 91 % (40 - 80); Neutrophils,CSF 9 % (0 - 6)
[2023-03-12 12:03] LABS: Lymphocytes,CSF 83 % (40 - 80); Monocytes,CSF 3 % (15 - 45); Neutrophils,CSF 14 % (0 - 6)
[2023-03-12 12:08] LABS: Body Fluid QC Type(s) BF1Q,BF2Q
[2023-03-12] MEDS: Insulin Glargine-YFGN 100 UNIT/ML Pen 10 UNIT SC (12:23)
[2023-03-12 12:52] LABS: Bedside Glucose 279 mg/dL (74-106)
[2023-03-12] MEDS: Glucerna Shake 120 ML LIQUID PO ×3 (15:22→21:25)
[2023-03-12] MEDS: NON-FORMULARY 1 TOPICAL ×2 (15:22→22:00)
--- NOTE | 2023-03-12 15:58 | CASEMGMT ---
RN?CM?OFFICE MACHINES WIRER?CM?to room to meet with patient for initial transition planning/care coordination?assessment.?RN?CM?introduced self and role at [facility].? Pt voices understanding and consents to?assessment?at this time.? Pt sitting up in recliner chair in room in no distress at this time.? Pt is A/O at this time and answers all questions appropriately.?? Care providers, pharmacy, and demographics verified/updated at this time. PCP: Milagro España Specialists: none Preferred Pharmacy: [facility] Retail Insurance: MCR, MMO Prescription Benefit:?Yes Living Will/HPOA:? Pt does not currently have LW/HCPOA and would like to complete. SHANIA, Jennifer, made aware. LNOK: , Elaine. 2 adult children Living Arrangements: Lives w/ and 17-yr-old granddaughter in double-wide mobile home w/3 steps to enter through front door and W/C lift @ backdoor. Pt states he is indep w/ADL's, manages his own meds, does the yard work, and does most of the home mgnt tasks. does some of the cooking. Transportation:?Pt states drives self and states no transportation concerns at this time.? also drives. DME: ?States has the following DME:?has a shower chair available that is his 's, but pt does not use it. Pt also has a lift chair. ?Pt states no need for further DME at this time.? HHC/SNF: No hx of either. Pt denies needs. Pt wishes to return home and states has no concerns with going home at time of discharge.? CM?to follow for any discharge planning/needs.? Pt voices no concerns/needs at this time.? Advised pt to ask for?CM?if any further questions/concerns/needs arise.? Voices understanding. PLAN:??Home Bj YENN?RN?CM
[2023-03-12 19:42] LABS: Bedside Glucose 309 mg/dL (74-106)
[2023-03-12] MEDS: Lidocaine 5% Patch 2 PATCH TOPICAL (21:57)
[2023-03-12 22:23] LABS: Bedside Glucose 380 mg/dL (74-106)
[2023-03-13 03:40] VITALS: BP 155/99; PULSE 100; RESP 18; TEMP 36.5; O2SAT 93
[2023-03-13 06:35] LABS: Absolute Lymphocyte Count 1.11 X10^3/uL (0.83-4.51); Absolute Neutrophil Count 7.8 X10^3/uL (2.0-7.7); Basophil# 0.05 X10^3/uL; Basophil% 0.5 % (0-1); Eosinophil# 0.17 X10^3/uL; Eosinophils% 1.8 % (0-5); Hemoglobin 14.9 g/dL (13.0-16.5); Lymphocyte # 1.11 X10^3/ul (0.83-4.51); Lymphocyte % 11.4 % (19-41); Mean Corp Hgb Conc 34.7 g/dL (32-36); Mean Corpuscular Hgb 31.1 pg (27.0-32.0); Mean Corpuscular Volume 89.8 fL (80-94); Mean Platelet Vol. 9.6 fl (6.2-12.0); Monocyte# 0.57 X10^3/uL; Monocyte% 5.9 % (0-10); NRBC Flagged by Analyzer 0 % (0-5); Neutrophil # 7.78 X10^3/uL (2.7-7.7); Neutrophil % 80.2 % (47-70); Platelet Count 317 K/mm3 (150-450); RBC Distribution Width CV 13.3 % (11.6-14.6); RBC Distribution Width SD 43.5 fl (35.1-43.9); Red Blood Count 4.79 M/mm3 (4.6-6.2); White Blood Count 9.7 K/mm3 (4.4-11.0)
[2023-03-13] MEDS: Insulin Lispro 100 UNIT/ML INSULN.PEN SC ×4 (06:39→21:06)
[2023-03-13 06:57] LABS: Bedside Glucose 358 mg/dL (74-106)
[2023-03-13 07:16] LABS: Anion Gap 4 (5-15); BUN 16 mg/dL (7-18); BUN/Creat Ratio 17.8 RATIO (10-20); Calcium,Total 8.7 mg/dL (8.5-10.1); Chloride 100 mmol/L (98-107); EST Glomerular Filtration Rate 89 mL/min (>60); Est Glom Filt Rate - Afr Amer 108 mL/min (>60); Estimated Creatinine Clearance 77.46 ml/min; Glucose 338 mg/dL (74-106); Potassium 3.7 mmol/L (3.5-5.1); Sodium Level 132 mmol/L (136-145)
[2023-03-13 09:19] VITALS: BP 131/91; PULSE 109; RESP 17; TEMP 36.6; O2SAT 95
[2023-03-13] MEDS: Glucerna Shake 120 ML LIQUID PO ×3 (09:24→21:10)
[2023-03-13] MEDS: Aspirin 81 MG TAB.CHEW PO (09:24)
[2023-03-13] MEDS: amLODIPine 10 MG Tablet PO (09:24)
[2023-03-13] MEDS: Insulin Glargine-YFGN 100 UNIT/ML Pen 20 UNIT SC (09:24)
--- NOTE | 2023-03-13 11:22 | CASEMGMT ---
Social Work SW attempted to assist pt in completing LW/POA. However, pt is asleep. Daughter present, she states pt just fell asleep 10 minutes prior and has not slept all night. SW explained will stop back later as time allows. BERNABE Coello
[2023-03-13 11:56] LABS: Bedside Glucose 449 mg/dL (74-106)
[2023-03-13 12:06] LABS: Pathologist Review Reviewed
[2023-03-13 12:07] LABS: Pathologist Review Reviewed
--- NOTE | 2023-03-13 13:19 | CASEMGMT ---
Patient expressed interest in completing Healthcare Power of [employer] and Healthcare Living Will documents. SW checked in with patient and he asked that SW come back when his daughter is present. Patient said she will not be back until tomorrow. SW let patient know SW can try and stop by tomorrow as able. Jennifer Neal FRUIT GRADER OPERATOR JOSEFINA
[2023-03-13 14:09] LABS: Adrenocorticotropic Hormone 2.1 pg/mL (7.2-63.3)
[2023-03-13 15:29] VITALS: BP 144/86; PULSE 109; RESP 18; TEMP 36.7; O2SAT 95
[2023-03-13 15:50] LABS: Bedside Glucose 334 mg/dL (74-106)
[2023-03-13 16:59] LABS: Bedside Glucose 293 mg/dL (74-106)
--- NOTE | 2023-03-13 17:06 | PN.HOSP_ITS ---
Reason for Visit Reason for Visit: Diagnoses Unspecified symptoms and signs involving the nervous system (03/11/23) Subjective Subjective Feeling roughly the same today, felt antsy earlier but feeling better at the moment, did not sleep well last night so is tired today Objective Data Objective Data Vital Signs: Vital Signs Temp Pulse Resp BP Pulse Ox O2 Del Method 98.0 F 109 H 18 144/86 H 95 Room Air 03/13/23 15:29 03/13/23 15:29 03/13/23 15:29 03/13/23 15:29 03/13/23 15:29 03/13/23 15:29 Oxygen Delivery Method Room Air Weight: 78.8 kg Body Mass Index (BMI) 25.6 Intake & Output: Intake and Output for Last 24 Hours 03/11/23 03/12/23 03/13/23 23:59 23:59 23:59 Intake Total 300 / 300 600 / 600 440 / 440 Balance 300 / 300 600 / 600 440 / 440 Medical Nutrition Assessment Dietitian: Malnutrition Criteria Met Start: 03/12/23 13:27 Freq: Status: Active Protocol: Document 03/12/23 13:28 LO (Rec: 03/12/23 13:28 [id number]) Nutrition Malnutrition Evidence of Malnutrition Exists Yes Malnutrition (moderate): Acute Illness/Injury Evidenced By Suboptimal Energy Intake ( Moderate),Weight Loss (Severe) Clinical Problem Acute Disease or Injury Related Malnutrition Etiology moderate related to recent neuro defects Signs/Symptoms as evidenced by 5.3% weight loss in 10 days and <75% PO intake of estimated nutrition needs for 2.5 weeks. Status Active Problem Recommendation Dietitian Recommendations/Changes Will change diet to 1800kcal CCD diet to manage blood sugars. RD will order 120mL Glucerna 4x with medpass Lab / Micro Data 03/13/23 06:20 03/13/23 06:20 Labs: Laboratory Results - last 24 hr 03/12/23 05:45: ACTH 2.1 L 03/12/23 10:48: CSF Comment Reviewed 03/12/23 10:48: CSF Comment Reviewed, Miscellaneous Cytology SEE PATHOLOGY REPORT 03/12/23 17:15: POC Glucose 309 H 03/12/23 21:29: POC Glucose 380 H 03/13/23 06:20: WBC 9.7, RBC 4.79, Hgb 14.9, Hct 43.0, MCV 89.8, MCH 31.1, MCHC 34.7, RDW Std Deviation 43.5, RDW Coeff of Krish 13.3, Plt Count 317, MPV 9.6, Immature Gran % (Auto) 0.200, Neut % (Auto) 80.2 H, Lymph % (Auto) 11.4 L, Lynn % (Auto) 5.9, Eos % (Auto) 1.8, Baso % (Auto) 0.5, Absolute Neuts (auto) 7.8 H, Absolute Lymphs (auto) 1.11, Nucleated RBC % 0, Sodium 132 L, Potassium 3.7, Chloride 100, Carbon Dioxide 28.0, Anion Gap 4 L, BUN 16, Creatinine 0.90, Estim Creat Clear Calc 77.46, Est GFR (MDRD) Af Amer 108, Est GFR (MDRD) Non-Af 89, BUN/Creatinine Ratio 17.8, Glucose 338 H, Calcium 8.7 03/13/23 06:38: POC Glucose 358 H 03/13/23 11:36: POC Glucose 449 H 03/13/23 15:33: POC Glucose 334 H 03/13/23 16:34: POC Glucose 293 H Micro: Microbiology 03/12/23 10:48 Csf, Spinal Fluid Gram Stain - Final Rhythm Strip Rhythm Strip: Sinus Rhythm Rate: 100 Ectopy: None Physical Exam Narrative General: Alert, oriented, no apparent distress HEENT: Atraumatic, right-sided facial droop Eyes: Anicteric, right-sided facial droop, right eye patched Neck: Supple Respiratory: Clear to auscultation bilaterally, normal respiratory effort Cardiovascular: Regular rate and rhythm GI: Soft, nontender, nondistended Extremities: No edema Musculoskeletal: Moving all extremities Neuro: Continues to have right-sided facial droop and left-sided extremity weakness Skin: No rashes appreciated Psych: Cooperative Assessment & Plan Assessment/Plan (1) Multiple neurological symptoms: PLAN: Plan #Rapidly progressive neurological deficits -Patient initially presented a week ago with left arm weakness and MRI of head without contrast did not reveal stroke, he was advised that he get a C-spine and T-spine image however he left AMA prior to that happening -He now represents with a Duarte's palsy like picture and has the continued left upper extremity deficit -We will check inflammatory markers, guillaume w/ reflex, Lyme disease, syphilis, B12 -We will also check TSH -We will check MRI of the brain, C-spine, T-spine with and without contrast -CTA head and neck unremarkable last admission 1 week ago so do not feel this needs repeated acutely -We will get neurology involved as studies become available -Patient has reported feeling like large pills of been sticking since he was here last so we will consult speech therapy -Given involvement on right side of face both upper and lower do not feel this is stroke related and 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 Spoke with neurologist who recommended MRI of the brachial plexus with and without contrast to assess for any infiltrative disorder. Additionally given his 11 pound weight loss in 1 week and fatigue neurology concerned that there could be underlying malignancy causing paraneoplastic syndrome and recommended CT chest/abdomen/pelvis. Additionally requested LP performed with studies as per note and likely outpt EMG/NCS. Neuro additionally agreed w/ lyme and autoimmune w/u amd had no additional serum recs -03/12: LP and MRI pending, CRP roughly unchanged, ESR had slightly improved, autoimmune work-up thus far negative, Lyme antibody pending. CT chest/abdomen/pelvis with a 9.4 mm noncalcified nodule in left upper lobe which he endorses he has had for 5 to 6 years and is being monitored and prostate enlarged, additionally had left adrenal hyperplasia and bilateral parapelvic cysts in the kidneys, all of unclear significance -03/13: Spoke with teleneurology, do not necessarily think he has CRANE FOLLOWER infection but also LP is not normal, they recommended transfer to higher level of care with inpatient neurology, infectious disease availability, and ideally rheumatology. Discussed with patient, will work on transfer #Noncalcified nodule left upper lobe -Seen on CT of the chest, 9.4 mm noncalcified nodule left upper lobe axial image #47 -Unclear significance at this time the patient reports he has a 10 mm nodule in his left lobe that has been monitored for the past 5 years without change #Hypokalemia and left adrenal hyperplasia -Replace, daily BMP -03/12: Checking renin/aldosterone given the hyperplasia and hypokalemia as well as hypertension to verify no hyperaldosteronism at present #Type 2 diabetes mellitus -Glucose checks and sliding scale insulin -Hold oral hypoglycemics at this time -Last A1c 10.3 on 03/03/2023 -Question compliance with his multiple home diabetic medications he did report he was recently out for multiple days but has since refilled them -May need to add basal insulin pending progress -03/11: Adding basil insulin -03/12: Continue to adjust medications -03/13: Requiring escalating doses of insulin #Hypertension -Continue amlodipine -03/11: Increase dose of amlodipine #DVT ppx: Lovenox subcu Laurie Nuno MD Time spent in the patient's overall evaluation,decision-making process, review of diagnostic data, adjustment of management, discussion with other providers, nursing nursing and ancillary staff involved in patient's care documentation, 70 minutes Charges/Coding Visit Charges Inpatient E&M: [id number] [facility] L3
--- NOTE | 2023-03-13 17:53 | DCINST_ITS ---
Discharge Instructions Follow Up Care Test Results: Test results from this visit will be discussed in further detail at your follow- up appointment, if applicable. Discharge Plan Admission Admit Date/Time: 03/11/23 16:06 Primary Reason for Your Visit: Right facial paralysis Attending Provider: Laurie Nuno [facility] Inst[facility] Patient Instructions: Lumbar Puncture Discharge Orders/Prescriptions Prescriptions: No Action amlodipine 5 mg tablet 5 mg PO DAILY Patient Comments: TAKE 1 TABLET BY MOUTH ONCE DAILY glipizide 10 mg tablet 10 mg PO BID Patient Comments: TAKE 1 TABLET BY MOUTH TWICE DAILY hydrochlorothiazide 25 mg tablet 25 mg PO DAILY Patient Comments: TAKE 1 TABLET BY MOUTH ONCE DAILY lisinopril 40 mg tablet 40 mg PO DAILY Patient Comments: TAKE 1 TABLET BY MOUTH ONCE DAILY pioglitazone [Actos] 15 mg tablet 15 mg PO DAILY Qty: 30 0RF Trulicity 1.5 mg/0.5 mL pen injector 3 mg SUBCUT QWEEK Qty: 2 2RF Patient Comments: INJECT 1 SYRINGE SUBCUTANEOUSLY ONCE A WEEK metformin 500 mg tablet 500 mg PO BID 30 Days Qty: 60 0RF aspirin 81 mg capsule 81 mg PO DAILY Janumet 50-1,000 mg tablet 1 tab PO BID Referrals / Follow Up: Babak Alexis MD [Med Staff - Active Staff] - Within 1 Month (Please follow-up with orthopedic surgery for your rotator cuff tear on the left side. Follow-up with Dr. Alexis in the office. Please call the office upon disc harge to schedule an establish care appointment) [facility] - Within 1 Week Disposition Disposition (needs filled in before D/C Order can be placed): [facility]
--- NOTE | 2023-03-13 17:55 | PCM.DC.SUM ---
Providers Date of Admission: 03/11/23 Date of Discharge: 03/13/23 Primary Care Physician: Milagro [facility] Reason For Visit: MULTIPLE NEURO DEFICITS Diagnosis Discharge Diagnosis (1) Multiple neurological symptoms: Status: Acute Code(s): R29.90 - Unspecified symptoms and signs involving the nervous system Plan #Rapidly progressive neurological deficits -Patient initially presented a week ago with left arm weakness and MRI of head without contrast did not reveal stroke, he was advised that he get a C-spine and T-spine image however he left AMA prior to that happening -He now represents with a Duarte's palsy like picture and has the continued left upper extremity deficit -We will check inflammatory markers, guillaume w/ reflex, Lyme disease, syphilis, B12 -We will also check TSH -We will check MRI of the brain, C-spine, T-spine with and without contrast -CTA head and neck unremarkable last admission 1 week ago so do not feel this needs repeated acutely -We will get neurology involved as studies become available -Patient has reported feeling like large pills of been sticking since he was here last so we will consult speech therapy -Given involvement on right side of face both upper and lower do not feel this is stroke related and 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 Spoke with neurologist who recommended MRI of the brachial plexus with and without contrast to assess for any infiltrative disorder. Additionally given his 11 pound weight loss in 1 week and fatigue neurology concerned that there could be underlying malignancy causing paraneoplastic syndrome and recommended CT chest/abdomen/pelvis. Additionally requested LP performed with studies as per note and likely outpt EMG/NCS. Neuro additionally agreed w/ lyme and autoimmune w/u amd had no additional serum recs -03/12: LP and MRI pending, CRP roughly unchanged, ESR had slightly improved, autoimmune work-up thus far negative, Lyme antibody pending. CT chest/abdomen/pelvis with a 9.4 mm noncalcified nodule in left upper lobe which he endorses he has had for 5 to 6 years and is being monitored and prostate enlarged, additionally had left adrenal hyperplasia and bilateral parapelvic cysts in the kidneys, all of unclear significance -03/13: Spoke with teleneurology, do not necessarily think he has [employer] infection but also LP is not normal, they recommended transfer to higher level of care with inpatient neurology, infectious disease availability, and ideally rheumatology. Discussed with patient, will work on transfer #Noncalcified nodule left upper lobe -Seen on CT of the chest, 9.4 mm noncalcified nodule left upper lobe axial image #47 -Unclear significance at this time the patient reports he has a 10 mm nodule in his left lobe that has been monitored for the past 5 years without change #Hypokalemia and left adrenal hyperplasia -Replace, daily BMP -03/12: Checking renin/aldosterone given the hyperplasia and hypokalemia as well as hypertension to verify no hyperaldosteronism at present #Type 2 diabetes mellitus -Glucose checks and sliding scale insulin -Hold oral hypoglycemics at this time -Last A1c 10.3 on 03/03/2023 -Question compliance with his multiple home diabetic medications he did report he was recently out for multiple days but has since refilled them -May need to add basal insulin pending progress -03/11: Adding basil insulin -03/12: Continue to adjust medications -03/13: Requiring escalating doses of insulin #Hypertension -Continue amlodipine -03/11: Increase dose of amlodipine #DVT ppx: Lovenox subcu Laurie Nuno MD Time spent in the patient's overall evaluation,decision-making process, review of diagnostic data, adjustment of management, discussion with other providers, nursing nursing and ancillary staff involved in patient's care documentation, 70 minutes Medications at Discharge Home Medications amlodipine 5 mg tablet 5 mg PO DAILY blood pressure 03/02/23 glipizide 10 mg tablet 10 mg PO BID diabetes 03/02/23 hydrochlorothiazide 25 mg tablet 25 mg PO DAILY blood pressure 03/02/23 lisinopril 40 mg tablet 40 mg PO DAILY blood pressure 03/02/23 dulaglutide 1.5 mg/0.5 mL subcutaneous pen injector (Trulicity) 3 mg subcut QWEEK diabetes #2 mL 03/03/23 metformin 500 mg tablet 500 mg PO BID diabetes 30 days #60 tabs 03/03/23 pioglitazone 15 mg tablet (Actos) 15 mg PO DAILY diabetes #30 tabs 03/03/23 aspirin 81 mg capsule 81 mg PO DAILY heart health 03/10/23 sitagliptin phosphate 50 mg-metformin 1,000 mg tablet (Janumet) 1 tab PO BID diabetes 03/10/23 Hospital Course Summary of Care Provided Minutes Spent on Discharge: 75 Hospital Course: Per HPI: ROSANNA DWYER, is a 67 M with history of type 2 diabetes mellitus, hypertension, recent left arm weakness 1 week ago with negative stroke work-up who presented to [facility] 03/10/2023 with right-sided facial paralysis. 1 week ago when he was here he had a negative CTA and MRI with no contrast before any further work-up could be pursued due to his focal deficit he left AGAINST MEDICAL ADVICE. After returning home his left arm has still been weak but he denies any pain and then this morning his family member noted that the right side of his face was not moving well and that he was not blinking on the right side so he was brought to the hospital. In the ED preliminary work-up unremarkable, hospitalist consulted for admission due to new neurological deficit on top of recent deficit that is already present concerning for underlying neurological problem. Patient evaluated at bedside with family member present. He left AMA 03/03 because he did not like the bed and was frustrated he could not go outside and verbalizes understanding about admission and not being able to leave the premises with his monitoring. He endorses left arm is roughly the same and as above does not have any pain. He is not sure when the right side of his face stopped working well however daughter noted she saw this morning. Patient has had some constipation but had bowel movement last night, reports he has been drinking water, he has [place] at home, but has had somewhat of a poor appetite for a while now. Additionally endorsed that he fell yesterday and trying to move a bucket of water and that it took 5 minutes to get himself up due to the weakness. Bruises easily, feels bilateral vision may not be as well as it usually is, no headache, does not feel he is having difficulty with his speech and denies any numbness, tingling, other weakness. Did not voice any other complaints at this time. INTERVAL HISTORY: Stroke work-up again negative, neurology contacted who recommended additional imaging and lumbar puncture. Additional imaging overall unrevealing for cause and lumbar puncture with elevated lymphocytes and protein. Recontacted neurology (most studies still pending however given preliminary results want to discuss) and they report with his symptoms and lack of other findings they felt inpatient neurology and infectious disease was warranted and recommended transfer. Discussed with patient and he was agreeable. Asked which family member he would like me to discuss this and he wanted me to speak with Anastasiya. Discussed with Anastasiya and all questions answered. Physical Exam Narrative General: Alert, oriented, no apparent distress HEENT: Atraumatic, right-sided facial droop Eyes: Anicteric, right-sided facial droop, right eye patched Neck: Supple Respiratory: Clear to auscultation bilaterally, normal respiratory effort Cardiovascular: Regular rate and rhythm GI: Soft, nontender, nondistended Extremities: No edema Musculoskeletal: Moving all extremities Neuro: Continues to have right-sided facial droop and left-sided extremity weakness Skin: No rashes appreciated Psych: Cooperative Medical Records Data Medical Nutrition Assessment Dietitian: Malnutrition Criteria Met Start: 03/12/23 13:27 Freq: Status: Active Protocol: Document 03/12/23 13:28 LO (Rec: 03/12/23 13:28 [id number]) Nutrition Malnutrition Evidence of Malnutrition Exists Yes Malnutrition (moderate): Acute Illness/Injury Evidenced By Suboptimal Energy Intake ( Moderate),Weight Loss (Severe) Clinical Problem Acute Disease or Injury Related Malnutrition Etiology moderate related to recent neuro defects Signs/Symptoms as evidenced by 5.3% weight loss in 10 days and <75% PO intake of estimated nutrition needs for 2.5 weeks. Status Active Problem Recommendation Dietitian Recommendations/Changes Will change diet to 1800kcal CCD diet to manage blood sugars. RD will order 120mL Glucerna 4x with medpass Weight / BMI Weight Weight: 78.8 kg Body Mass Index (BMI) 25.6 ABG / Lab / Microbiology Data 03/13/23 06:20 03/13/23 06:20 Laboratory: Laboratory Results - last 24 hr 03/12/23 05:45: ACTH 2.1 L 03/12/23 10:48: CSF Comment Reviewed 03/12/23 10:48: CSF Comment Reviewed, Miscellaneous Cytology SEE PATHOLOGY REPORT 03/12/23 17:15: POC Glucose 309 H 03/12/23 21:29: POC Glucose 380 H 03/13/23 06:20: WBC 9.7, RBC 4.79, Hgb 14.9, Hct 43.0, MCV 89.8, MCH 31.1, MCHC 34.7, RDW Std Deviation 43.5, RDW Coeff of Krish 13.3, Plt Count 317, MPV 9.6, Immature Gran % (Auto) 0.200, Neut % (Auto) 80.2 H, Lymph % (Auto) 11.4 L, [place] % (Auto) 5.9, Eos % (Auto) 1.8, Baso % (Auto) 0.5, Absolute Neuts (auto) 7.8 H, Absolute Lymphs (auto) 1.11, Nucleated RBC % 0, Sodium 132 L, Potassium 3.7, Chloride 100, Carbon Dioxide 28.0, Anion Gap 4 L, BUN 16, Creatinine 0.90, Estim Creat Clear Calc 77.46, Est GFR (MDRD) Af Amer 108, Est GFR (MDRD) Non-Af 89, BUN/Creatinine Ratio 17.8, Glucose 338 H, Calcium 8.7 03/13/23 06:38: POC Glucose 358 H 03/13/23 11:36: POC Glucose 449 H 03/13/23 15:33: POC Glucose 334 H 03/13/23 16:34: POC Glucose 293 H Microbiology: Microbiology 03/12/23 10:48 Csf, Spinal Fluid Gram Stain - Final Meaningful Use Info Meaningful Use Diagnoses (Choose all that apply): None applicable Discharge Plan Admission Admit Date/Time: 03/11/23 16:06 Primary Reason for Your Visit: Right facial paralysis Attending Provider: Laurie Nuno [facility] Patient Instructions: Lumbar Puncture Discharge Orders/Prescriptions Prescriptions: No Action amlodipine 5 mg tablet 5 mg PO DAILY Patient Comments: TAKE 1 TABLET BY MOUTH ONCE DAILY glipizide 10 mg tablet 10 mg PO BID Patient Comments: TAKE 1 TABLET BY MOUTH TWICE DAILY hydrochlorothiazide 25 mg tablet 25 mg PO DAILY Patient Comments: TAKE 1 TABLET BY MOUTH ONCE DAILY lisinopril 40 mg tablet 40 mg PO DAILY Patient Comments: TAKE 1 TABLET BY MOUTH ONCE DAILY pioglitazone [Actos] 15 mg tablet 15 mg PO DAILY Qty: 30 0RF Trulicity 1.5 mg/0.5 mL pen injector 3 mg SUBCUT QWEEK Qty: 2 2RF Patient Comments: INJECT 1 SYRINGE SUBCUTANEOUSLY ONCE A WEEK metformin 500 mg tablet 500 mg PO BID 30 Days Qty: 60 0RF aspirin 81 mg capsule 81 mg PO DAILY Janumet 50-1,000 mg tablet 1 tab PO BID Referrals / Follow Up: Babak Alexis MD [Med Staff - Active Staff] - Within 1 Month (Please follow-up with orthopedic surgery for your rotator cuff tear on the left side. Follow-up with Dr. Alexis in the office. Please call the office upon discharge to schedule an establish care appointment) [facility],Milagro Dalton [Primary Care Provider] - Within 1 Week Disposition Disposition (needs filled in before D/C Order can be placed): Acute Care Hospital Charges/Coding Visit Charges Inpatient E&M: 01353 Disch Hosp >30min
[2023-03-13] MEDS: Senna/Docusate Sodium 1 Tablet 2 TABLET PO (19:37)
[2023-03-13 21:03] VITALS: BP 148/91; PULSE 102; RESP 16; TEMP 36.6; O2SAT 94
[2023-03-13] MEDS: Insulin Glargine-YFGN 100 UNIT/ML Pen SC (21:07)
[2023-03-13 21:26] LABS: Bedside Glucose 258 mg/dL (74-106)
[2023-03-16 21:07] LABS: ALDOSTERONE/RENIN RATIO 7.7 (0.0-30.0); Aldosterone, Serum 5.8 ng/dL (0.0-30.0); Renin, Plasma 0.753 ng/mL/hr (0.167-5.380)
[2023-03-18 17:07] LABS: CSF Albumin 136 mg/dL (15-55); CSF IgG 31.2 mg/dL (0.0-10.3); CSF IgG Index 0.8 (0.0-0.7); CSF:Serum Albumin Index 40 (0-8); Enterovirus By PCR Negative (Negative); HSV 1 By PCR Negative (Negative); HSV 2 By PCR Negative (Negative); IgG Serum 1015 mg/dL (603-1613); IgG Synthesis Rate, CSF 64.4 mg/day (-9.9 TO +3.3); IgG/Alb Ratio, CSF 0.23 (0.00-0.25); Myelin Basic Protein, MBP 5.7 ng/mL (0.0-5.4); Serum Albumin 3.4 g/dL (3.9-4.9); West Nile Virus Qual by PCR Negative (.)
== END 2023-03-13 22:00 | disposition short-term general hospital (02) | DRG 74 ==
LOC: ED 11:27 → PCU 11:43
PROVIDERS: Admitting Provider Internal Medicine; Emergency Provider Emergency Medicine; Visit Provider Internal Medicine
DX: G51.0 Bell's palsy (principal); E44.0 Moderate protein-calorie malnutrition; E27.8 Other specified disorders of adrenal gland; E11.9 Type 2 diabetes mellitus without complications; G83.24 Monoplegia of upper limb affecting left nondominant side; I10 Essential (primary) hypertension; E87.6 Hypokalemia; R91.1 Solitary pulmonary nodule; R83.6 Abnormal cytological findings in cerebrospinal fluid; Z68.25 Body mass index [BMI] 25.0-25.9, adult; Z79.82 Long term (current) use of aspirin; Z79.84 Long term (current) use of oral hypoglycemic drugs; Z79.899 Other long term (current) drug therapy
CPT/HCPCS: 36415; 62328; 70450; 70553; 71045; 71260; 72156; 72157; 73220; 74177; 80048; 80053; 80076; 81001; 82024; 82040; 82042; 82088; 82306; 82533; 82550; 82607; 82746; 82784; 82945; 82962; 83735; 83873; 83916; 84100; 84157; 84244; 84443; 85025; 85610; 85652; 86038; 86140; 86225; 86235; 86618; 86703; 86780; 87070; 87205; 87498; 87529; 87798; 88108; 88313; 89050; 89051; 92526; 92610; 93005; 97110; 97162; 97166; 97530; 97535; 97802; 99285; A9575; J7030; Q9967; A4216

== ENCOUNTER → 2023-09-07 | Outpatient (CLI) | payer MEDICARE, OTHER, SELFPAY ==
[2023-09-07 11:37] LABS: Hemoglobin A1c 6.5 % (3.8-5.6)
== END | disposition home or self-care (01) ==
LOC: PAVLAB 10:42
PROVIDERS: Referring Provider Physician Assistant Surgical; Visit Provider Physician Assistant Surgical
DX: Z01.810 Encounter for preprocedural cardiovascular examination (principal); Z79.899 Other long term (current) drug therapy
CPT/HCPCS: 36415; 83036

== ENCOUNTER → 2024-07-06 | Outpatient (CLI) | payer MEDICARE, OTHER, SELFPAY ==
[2024-07-06 12:51] LABS: Absolute Lymphocyte Count 1.14 X10^3/uL (0.83-4.51); Absolute Neutrophil Count 4.4 X10^3/uL (2.0-7.7); Basophil# 0.03 X10^3/uL; Basophil% 0.5 % (0-1); Eosinophil# 0.22 X10^3/uL; Eosinophils% 3.5 % (0-5); Hematocrit 45.2 % (40-54); Hemoglobin 15.4 g/dL (13.0-16.5); Lymphocyte # 1.14 X10^3/ul (0.83-4.51); Lymphocyte % 18.1 % (19-41); Mean Corp Hgb Conc 34.1 g/dL (32-36); Mean Corpuscular Hgb 31.1 pg (27.0-32.0); Mean Corpuscular Volume 91.3 fL (80-94); Mean Platelet Vol. 10.5 fl (6.2-12.0); Monocyte# 0.51 X10^3/uL; Monocyte% 8.1 % (0-10); NRBC Flagged by Analyzer 0 % (0-5); Neutrophil # 4.37 X10^3/uL (2.7-7.7); Neutrophil % 69.5 % (47-70); Platelet Count 219 K/mm3 (150-450); RBC Distribution Width CV 12.8 % (11.6-14.6); RBC Distribution Width SD 43.3 fl (35.1-43.9); Red Blood Count 4.95 M/mm3 (4.6-6.2); White Blood Count 6.3 K/mm3 (4.4-11.0)
[2024-07-06 13:24] LABS: Microalbumin,Random Urine 42.4 mg/L (NO RANGE EST.)
[2024-07-06 14:34] LABS: ALB/GLOB Ratio 0.9 RATIO (0.9-2.4); AST(SGOT) 12 U/L (15-37); Alanine Aminotransfer ALT/SGPT 21 U/L (16-61); Albumin, Serum 3.4 g/dL (3.2-5.0); Alkaline Phosphatase 102 U/L (45-117); Anion Gap 6 (5-15); BUN 22 mg/dL (7-18); BUN/Creat Ratio 18.6 RATIO (10-20); Calcium,Total 8.9 mg/dL (8.5-10.1); Chloride 102 mmol/L (98-107); Cholesterol 198 mg/dL (200); Creatinine, Serum 1.18 mg/dL (0.70-1.30); EST Glomerular Filtration Rate 65 mL/min (>60); Est Glom Filt Rate - Afr Amer 78 mL/min (>60); Globulin 3.9 g/dL (2.2-4.2); Glucose 393 mg/dL (74-106); High Density Lipoprotein 58 mg/dL; Potassium 3.7 mmol/L (3.5-5.1); Protein, Total 7.3 g/dL (6.4-8.2); Sodium Level 136 mmol/L (136-145); Triglycerides 143 mg/dL; Very Low Density Lipoprotein 29 mg/dL (5-40)
== END | disposition home or self-care (01) ==
LOC: VSLAB 12:14
PROVIDERS: PCP Nurse Practitioner Family; Visit Provider Nurse Practitioner Family
DX: E11.9 Type 2 diabetes mellitus without complications (principal)
CPT/HCPCS: 36415; 80053; 80061; 82043; 84443; 85025